=== PATIENT | female | born 1945 | race Hispanic/Latino ===

== ENCOUNTER → 2017-12-19 | Outpatient (CLI) | payer MEDICARE ==
[~2017-12-19] MED LIST: ACET-2160 PO; ACET-2247 PO; AMIO200T2 PO; CEPH500B PO; DILT30TA3 PO; FURO40TA7 PO; HYDR-2132 PO; LOVA20TA3 PO; MULT-1258 PO; MULTIVITAMIN; OMEGA; OMEGA 3 ACID PO; RIVA20TA PO; ROPI0.5T5 PO; SPIR25TA PO; SPIR25TA4 PO; TRAM50TA4 PO
== END ==
LOC: RAH 13:15
PROVIDERS: ATTEND Physical Medicine & Rehabilitation
DX: M19.012 Primary osteoarthritis, left shoulder (principal)
CPT/HCPCS: 73030

== ENCOUNTER 2018-04-21 09:37 | Observation (INO) | payer MEDICARE ==
[2018-04-20 14:59] VITALS: BP 113/65
[2018-04-20 15:15] LABS: BASOPHILS % (AUTO) 0.5 % (0.0-5.0); EOSINOPHILS % (AUTO) 1.1 % (0.0-8.0); LYMPHOCYTES % (AUTO) 25.7 % (21.0-51.0); MEAN CORPUSCULAR HEMOGLOBIN 34.1 pg (27.0-33.0); MEAN CORPUSCULAR VOLUME 97.4 fL (79-99); MONOCYTES % (AUTO) 9.4 % (3.0-13.0); NEUTROPHILS % (AUTO) 63.3 % (40.0-77.0); PLATELET COUNT (AUTO) 192 K/uL (130-400); RED CELL DISTRIBUTION WIDTH 13.4 % (11.0-15.5); WHITE BLOOD COUNT (AUTO) 5.6 K/uL (4.8-10.8)
[2018-04-20 15:23] LABS: POTASSIUM 4.6 mmol/L (3.5-5.1)
[2018-04-20 15:24] LABS: CREATININE 1.9 mg/dL (0.5-1.5)
[~2018-04-21] VITALS: Ht 149.9 cm; Wt 80.4 kg
[2018-04-21] VITALS (22 sets, daily range): BP systolic 115–147; BP diastolic 60–84
[~2018-04-21 09:37] MED LIST changes: -ACET-2247 PO; -AMIO200T2 PO; +CEFAZOLIN SODIUM 1 GM VIAL IVP ONE; -CEPH500B PO; -DILT30TA3 PO; -FURO40TA7 PO; -HYDR-2132 PO; -LOVA20TA3 PO; -MULTIVITAMIN; -OMEGA; -SPIR25TA PO; -SPIR25TA4 PO; +SPIR25TA6 PO; -TRAM50TA4 PO; +WATER FOR INJECTION,STERILE 20 ML VIAL IJ ONE
[2018-04-21] MEDS ORDERED: CEFAZOLIN SODIUM 1 GM VIAL ONE (10:23)
[2018-04-21] MEDS ORDERED: LACTATED RINGERS 1000ML 1,000 ML IV ONE (10:23)
[2018-04-21] MEDS ORDERED: SUCCINYLCHOLINE 200MG/10ML SYR ONE (11:39)
[2018-04-21] MEDS ORDERED: ONDANSETRON HCL 4 MG/2 ML VIAL ONE (11:39)
[2018-04-21] MEDS ORDERED: LIDOCAINE PF 2% 5ML ABBOJECT ONE (11:39)
[2018-04-21] MEDS ORDERED: DEXAMETHASONE SOD PHOSPHATE 10MG/ML 1ML VIAL ONE (11:40)
[2018-04-21] MEDS ORDERED: PROPOFOL 10 MG/ML 20ML VIAL IV ONE (11:40)
[2018-04-21] MEDS ORDERED: GLYCOPYRROLATE 0.2 MG/ML 5 ML VIAL ONE (11:40)
[2018-04-21] MEDS ORDERED: MIDAZOLAM HCL 1 MG/ML 2ML VIAL ONE (11:40)
[2018-04-21] MEDS ORDERED: FENTANYL CITRATE PF 50 MCG/1 ML 2ML VIAL ONE (11:40)
[2018-04-21] MEDS ORDERED: EPINEPHRINE 1 MG/ML 30ML VIAL IJ ONE (11:41)
[2018-04-21] MEDS ORDERED: HYDR-2132 PO (17:01)
[2018-04-21] MEDS ORDERED: CEPH500B PO (17:01)
[2018-04-21] MEDS ORDERED: IPRATROPIUM/ALBUTEROL SULFATE 3 ML SOLUTION IH ONE (18:28)
[2018-04-21] MEDS ORDERED: ONDANSETRON HCL MDV 20ML 2 MG/ML VIAL ONE (18:40)
[2018-04-21] MEDS ORDERED: METOCLOPRAMIDE 10 MG/2 ML VIAL ONE (18:40)
[2018-04-21] MEDS ORDERED: ENOXAPARIN SODIUM 40 MG/0.4 ML SYRINGE SQ SCH (20:45)
[2018-04-21] MEDS: IPRATROPIUM/ALBUTEROL SULFATE 3 ML SOLUTION IH SCH ×3 (22:00→23:28)
[2018-04-21] MEDS ORDERED: FUROSEMIDE 10 MG/ML 4ML VIAL ONE (22:05)
[2018-04-21] MEDS ORDERED: FUROSEMIDE 10 MG/ML 4ML VIAL IV SCH (22:30)
[2018-04-22] VITALS: BP 135/48
[2018-04-22] MEDS ORDERED: ACETAMINOPHEN 325 MG TAB PO PRN (02:00)
[2018-04-22] MEDS ORDERED: PHARMACY COMMUNICATION MISC SCH (02:00)
[2018-04-22 04:00] VITALS: BP 95/49
[2018-04-22] MEDS: IPRATROPIUM/ALBUTEROL SULFATE 3 ML SOLUTION IH SCH ×5 (05:12→22:11)
[2018-04-22 06:52] LABS: ALBUMIN 3.2 g/dL (3.5-5.0); BILIRUBIN,TOTAL 1.3 mg/dL (0.2-1.0); CREATININE 1.6 mg/dL (0.5-1.5); POTASSIUM 3.9 mmol/L (3.5-5.1); TOTAL PROTEIN, SERUM 6.6 g/dL (6.0-8.3)
[2018-04-22 07:00] LABS: BASOPHILS % (AUTO) 0.2 % (0.0-5.0); HEMATOCRIT 33.3 % (36-48); LYMPHOCYTES % (AUTO) 10.9 % (21.0-51.0); MEAN CORPUSCULAR HEMOGLOBIN 34.4 pg (27.0-33.0); MEAN CORPUSCULAR HGB CONC 35.3 g/dL (32.0-36.0); MEAN CORPUSCULAR VOLUME 97.6 fL (79-99); MONOCYTES % (AUTO) 8.5 % (3.0-13.0); NEUTROPHILS % (AUTO) 80.4 % (40.0-77.0); PLATELET COUNT (AUTO) 174 K/uL (130-400); RED BLOOD CELL COUNT(AUTO) 3.41 MIL/uL (4.00-5.50); WHITE BLOOD COUNT (AUTO) 8.5 K/uL (4.8-10.8)
[2018-04-22 07:25] LABS: APPEARANCE,URINE CLEAR (CLEAR); BILIRUBIN,URINE NEGATIVE (NEGATIVE); GLUCOSE, URINE (UA) NEGATIVE (NEGATIVE); KETONES,URINE NEGATIVE (NEGATIVE); LEUKOCYTE ESTERASE ,URINE NEGATIVE (NEGATIVE); NITRATE,URINE NEGATIVE (NEGATIVE); OCCULT BLOOD,URINE NEGATIVE (NEGATIVE); PH,URINE 5.5 (5.0-8.0); PROTEIN,URINE NEGATIVE (NEGATIVE); UROBILINOGEN,URINE 0.2 mg/dL (0.2-1.0)
[2018-04-22 07:27] LABS: COLOR,URINE DARK YELLOW (YELLOW)
[2018-04-22 07:36] LABS: BACTERIA,URINE Rare /HPF (None Seen); MUCUS,URINE Few LPF (None Seen); RBC,URINE None Seen /HPF (0-1); SQUAMOUS EPITHELIAL CELL,UR Rare /HPF (0-2); WBC,URINE None Seen /HPF (0-1)
[2018-04-22 08:09] VITALS: BP 109/53
[2018-04-22] MEDS: MULTIVITAMIN TABLET PO SCH (08:52)
[2018-04-22] MEDS: FISH OIL 1000 MG/CAP PO SCH ×3 (08:52→20:21)
[2018-04-22] MEDS: SPIRONOLACTONE 25 MG TAB PO SCH ×2 (08:52→20:06)
[2018-04-22] MEDS: RIVAROXABAN 20 MG TABLET PO SCH (08:53)
[2018-04-22] MEDS ORDERED: FUROSEMIDE 10 MG/ML 4ML VIAL IV SCH (10:00)
[2018-04-22 11:22] VITALS: BP 114/57
[2018-04-22 16:13] VITALS: BP 94/51
[2018-04-22 20:04] VITALS: BP 90/52
[2018-04-22] MEDS ORDERED: ROPINIROLE HCL 1 MG TABLET PO SCH (21:00)
[2018-04-23] VITALS: BP 102/55
[2018-04-23] MEDS: IPRATROPIUM/ALBUTEROL SULFATE 3 ML SOLUTION IH SCH ×4 (01:40→14:09)
[2018-04-23 04:00] VITALS: BP 90/53
[2018-04-23 04:52] LABS: BASOPHILS % (AUTO) 0.2 % (0.0-5.0); EOSINOPHILS % (AUTO) 0.1 % (0.0-8.0); HEMATOCRIT 30.2 % (36-48); MEAN CORPUSCULAR HEMOGLOBIN 34.7 pg (27.0-33.0); MEAN CORPUSCULAR HGB CONC 35.6 g/dL (32.0-36.0); MEAN CORPUSCULAR VOLUME 97.4 fL (79-99); MONOCYTES % (AUTO) 10.7 % (3.0-13.0); PLATELET COUNT (AUTO) 138 K/uL (130-400); WHITE BLOOD COUNT (AUTO) 9.1 K/uL (4.8-10.8)
[2018-04-23 05:09] LABS: ALBUMIN 2.8 g/dL (3.5-5.0); BILIRUBIN,TOTAL 1.8 mg/dL (0.2-1.0); CREATININE 1.5 mg/dL (0.5-1.5); POTASSIUM 3.9 mmol/L (3.5-5.1); TOTAL PROTEIN, SERUM 6.1 g/dL (6.0-8.3)
[2018-04-23 08:23] VITALS: BP 104/61
[2018-04-23] MEDS: FISH OIL 1000 MG/CAP PO SCH ×2 (08:24→14:15)
[2018-04-23] MEDS: RIVAROXABAN 20 MG TABLET PO SCH (08:24)
[2018-04-23] MEDS: SPIRONOLACTONE 25 MG TAB PO SCH (08:24)
[2018-04-23] MEDS: MULTIVITAMIN TABLET PO SCH (08:24)
[2018-04-23] MEDS ORDERED: FUROSEMIDE 10 MG/ML 4ML VIAL IV SCH (09:00)
[2018-04-23] MEDS ORDERED: LACTULOSE 20 GM/30 ML UDCUP PO PRN (11:15)
[2018-04-23 12:31] VITALS: BP 92/54
[2018-04-23 16:46] VITALS: BP 96/51
== END 2018-04-23 17:30 | disposition home or self-care (01) ==
LOC: DAH 09:37 → 4AH 09:38 → DAH 09:38
PROVIDERS: ADMIT Family Medicine; ATTEND Family Medicine
DX: S46.219A Strain of muscle, fascia and tendon of other parts of biceps, unspecified arm, initial encounter (principal); E03.9 Hypothyroidism, unspecified; M19.019 Primary osteoarthritis, unspecified shoulder; M75.42 Impingement syndrome of left shoulder; Z96.651 Presence of right artificial knee joint; E87.70 Fluid overload, unspecified; Z90.710 Acquired absence of both cervix and uterus
CPT/HCPCS: 29822; 29824; 29826; 29827; 36415 ×3; 71045 ×2; 80048; 80053 ×2; 81001; 83880; 85025 ×3; 87088; 93005; 94640 ×11; 94664; 96372; 96374; 96376; A4218; A4344 ×2; A4565; A4649 ×5; A4930; A6204; C1763; G0378 ×56; J0171; J0330; J0690; J1100; J1650; J1940 ×3; J2001; J2250; J2405; J2704; J2765; J3010; J3490; J7120

== ENCOUNTER 2020-11-05 06:08 | Day surgery (SDC) | payer MEDICARE ==
[2020-10-29 13:24] LABS: BASOPHILS % (AUTO) 0.6 % (0.0-5.0); EOSINOPHILS % (AUTO) 2.4 % (0.0-8.0); HEMATOCRIT 41.8 % (36-48); LYMPHOCYTES % (AUTO) 32.7 % (21.0-51.0); MEAN CORPUSCULAR HEMOGLOBIN 31.7 pg (27.0-33.0); MEAN CORPUSCULAR HGB CONC 33.3 g/dL (32.0-36.0); MEAN CORPUSCULAR VOLUME 95.2 fL (79-99); MONOCYTES % (AUTO) 8.2 % (3.0-13.0); NEUTROPHILS % (AUTO) 55.9 % (40.0-77.0); PLATELET COUNT (AUTO) 144 K/uL (130-400); RED BLOOD CELL COUNT(AUTO) 4.39 MIL/uL (4.00-5.50); WHITE BLOOD COUNT (AUTO) 4.7 K/uL (4.8-10.8)
[2020-10-29 13:31] LABS: CREATININE 1.2 mg/dL (0.5-1.5); POTASSIUM 4.4 mmol/L (3.5-5.1)
[2020-11-04 09:33] VITALS: BP 127/66
[2020-11-05] VITALS (18 sets, daily range): BP systolic 88–111; BP diastolic 53–82
[~2020-11-05] VITALS: Ht 149.9 cm; Wt 85.5 kg
[~2020-11-05 06:08] MED LIST changes: -ACET-2160 PO; +ASCO100031 PO; -CEFAZOLIN SODIUM 1 GM VIAL IVP ONE; +FURO40TA5 PO; +LEVO75CA5 PO; +LOVA20TA3 PO; -ROPI0.5T5 PO; +ROPI0.5T7 PO; -WATER FOR INJECTION,STERILE 20 ML VIAL IJ ONE
[2020-11-05] MEDS ORDERED: BUPIVACAINE/PF 0.5% 30ML VIAL ONE (06:51)
[2020-11-05] MEDS ORDERED: CEFAZOLIN SODIUM 1 GM VIAL ONE (06:51)
[2020-11-05] MEDS: CEFAZOLIN SODIUM 1 GM VIAL IVP SCH ×2 (07:00→08:20)
[2020-11-05] MEDS ORDERED: LACTATED RINGERS 1000ML 1,000 ML IV ONE (07:07)
[2020-11-05] MEDS ORDERED: DEXAMETHASONE SOD PHOSPHATE 10MG/ML 1ML VIAL ONE (07:36)
[2020-11-05] MEDS ORDERED: LIDOCAINE PF 100MG/5ML (2%) SYRINGE 5ML ONE (07:36)
[2020-11-05] MEDS ORDERED: MIDAZOLAM HCL 1 MG/ML 2ML VIAL ONE (07:37)
[2020-11-05] MEDS ORDERED: ONDANSETRON 4MG INJ ONE (07:37)
[2020-11-05] MEDS ORDERED: PROPOFOL 10 MG/ML 20ML VIAL IV ONE (07:37)
[2020-11-05] MEDS ORDERED: MEPERIDINE-PF 25 MG/ML SYG ONE (07:38)
[2020-11-05] MEDS ORDERED: FENTANYL CITRATE PF 50 MCG/1 ML 2ML VIAL ONE (07:38)
[2020-11-05] MEDS ORDERED: LIDOCAINE HCL-MPF 0.5% 50ML VIAL IJ ONE (07:42)
[2020-11-05] MEDS ORDERED: KETOROLAC 30MG VIAL (30MG/ML) ONE (08:05)
[2020-11-05] MEDS ORDERED: EPHEDRINE SULFATE 50 MG/ML AMPULE ONE (08:15)
[2020-11-05] MEDS ORDERED: ACET1TAB25 PO (09:21)
[2020-11-05] MEDS ORDERED: CEPH500B PO (09:21)
[2021-06-26] MEDS ORDERED: CLIN-141 PO (15:00)
== END 2020-11-05 11:32 ==
LOC: DAH 06:08 → EDSTATUS 10:00 → DAH 11:32
PROVIDERS: ATTEND Orthopaedic Surgery
DX: G56.02 Carpal tunnel syndrome, left upper limb (principal); I11.0 Hypertensive heart disease with heart failure; I50.9 Heart failure, unspecified; M19.90 Unspecified osteoarthritis, unspecified site; Z95.0 Presence of cardiac pacemaker; E03.9 Hypothyroidism, unspecified; Z90.710 Acquired absence of both cervix and uterus; M06.9 Rheumatoid arthritis, unspecified; Z79.899 Other long term (current) drug therapy; Z20.828 Contact with and (suspected) exposure to other viral communicable diseases
CPT/HCPCS: 36415; 64721; 80048; 85025; 93005; A4215; A4216; A4221; A4222; A4223; A4649; A4657; A4663; A4930; A5120; A6223; J0690 ×2; J1100; J1885; J2175; J2250; J2405; J2704; J3010; J3490 ×3; J7030; J7120; U0003; J2001

== ENCOUNTER → 2021-06-02 | Outpatient (CLI) | payer MEDICARE ==
[~2021-06-02] MED LIST changes: +ACET1TAB25 PO; +CEPH500B PO
== END | disposition home or self-care (01) ==
LOC: RAH 09:11
PROVIDERS: ATTEND Internal Medicine
DX: K82.8 Other specified diseases of gallbladder (principal); R16.0 Hepatomegaly, not elsewhere classified; K29.70 Gastritis, unspecified, without bleeding
CPT/HCPCS: 76705

== ENCOUNTER 2021-06-26 13:23 | Inpatient (IN) | payer MEDICARE ==
[~2021-06-26] VITALS: Ht 149.9 cm; Wt 88.5 kg
[2021-06-26] VITALS (7 sets, daily range): BP systolic 73–144; BP diastolic 34–95
[2021-06-26] MEDS ORDERED: HYDROCODONE/ACETAMINOPHEN 5/325 MG TAB PO ONE (14:00)
[2021-06-26] MEDS ORDERED: CLINDAMYCIN IVPB 600MG/50ML 50 ML IV SCH (14:00)
[2021-06-26 14:12] LABS: BASOPHILS % (AUTO) 0.3 % (0.0-5.0); EOSINOPHILS % (AUTO) 0.2 % (0.0-8.0); HEMATOCRIT 39.2 % (36-48); LYMPHOCYTES % (AUTO) 5.4 % (21.0-51.0); MEAN CORPUSCULAR HEMOGLOBIN 32.6 pg (27.0-33.0); MEAN CORPUSCULAR HGB CONC 33.4 g/dL (32.0-36.0); MEAN CORPUSCULAR VOLUME 97.5 fL (79-99); MONOCYTES % (AUTO) 5.5 % (3.0-13.0); NEUTROPHILS % (AUTO) 87.4 % (40.0-77.0); PLATELET COUNT (AUTO) 202 K/uL (130-400); RED BLOOD CELL COUNT(AUTO) 4.02 MIL/uL (4.00-5.50); RED CELL DISTRIBUTION WIDTH 14.6 % (11.0-15.5); WHITE BLOOD COUNT (AUTO) 19.8 K/uL (4.8-10.8)
[2021-06-26 14:21] LABS: CREATININE 1.9 mg/dL (0.5-1.5); POTASSIUM 4.5 mmol/L (3.5-5.1)
[2021-06-26 14:26] LABS: ALBUMIN 2.8 g/dL (3.5-5.0); BILIRUBIN,TOTAL 2.1 mg/dL (0.2-1.0); TOTAL PROTEIN, SERUM 6.6 g/dL (6.0-8.3)
[2021-06-26 14:36] LABS: CRP QUANTITATIVE 114.3 mg/L (0.00-9.0)
[2021-06-26 14:53] LABS: INR 1.65 (0.85-1.15); PROTHROMBIN TIME 17.2 SEC (9.6-11.6)
[2021-06-26] MEDS ORDERED: AMOX-429 PO (15:00)
[2021-06-26] MEDS ORDERED: MUPI22O TP (15:00)
[2021-06-26] MEDS ORDERED: CLIN300C10 PO (15:00)
[2021-06-26] MEDS ORDERED: ACET-2247 PO (15:00)
[2021-06-26] MEDS ORDERED: HYDROCODONE/ACETAMINOPHEN 5/325 MG TAB ONE (15:17)
[2021-06-26] MEDS ORDERED: ASPIRIN 325MG TAB PO ONE (16:00)
[2021-06-26] MEDS ORDERED: NITROGLYCERIN 1GM OINT 1 INCH/1GM TD ONE (16:00)
[2021-06-26] MEDS ORDERED: DIPHENHYDRAMINE HCL 25 MG CAPSULE PO PRN (17:00)
[2021-06-26] MEDS ORDERED: GUAIFENESIN-DM 200/20 MG 10 ML PO PRN (17:00)
[2021-06-26] MEDS ORDERED: HYDRALAZINE 20MG/ML VIAL IV PRN (17:00)
[2021-06-26] MEDS ORDERED: ONDANSETRON 4MG INJ IV PRN (17:00)
[2021-06-26] MEDS ORDERED: ACETAMINOPHEN 325 MG TAB PO PRN (17:00)
[2021-06-26] MEDS ORDERED: LACTULOSE 20 GM/30 ML UDCUP PO PRN (17:00)
[2021-06-26] MEDS ORDERED: ACETAMINOPHEN WITH CODEINE 1 TAB TAB PO PRN (17:00)
[2021-06-26] MEDS ORDERED: NITROGLYCERIN 0.4 MG SL TAB SL PRN (17:00)
[2021-06-26 17:37] LABS: APPEARANCE,URINE Cloudy (CLEAR); BILIRUBIN,URINE Small (NEGATIVE); COLOR,URINE Dark Yellow (YELLOW); GLUCOSE, URINE (UA) Negative (NEGATIVE); KETONES,URINE Trace mg/dL (NEGATIVE); LEUKOCYTE ESTERASE ,URINE Small (NEGATIVE); NITRATE,URINE Negative (NEGATIVE); OCCULT BLOOD,URINE Negative (NEGATIVE); PROTEIN,URINE Trace mg/dL (NEGATIVE)
[2021-06-26 17:44] LABS: BACTERIA,URINE Moderate /HPF (None Seen); RBC,URINE 0-1 /HPF (0-1); SQUAMOUS EPITHELIAL CELL,UR Few /HPF (0-2)
[2021-06-26 17:45] LABS: MUCUS,URINE Rare LPF (None Seen)
[2021-06-26] MEDS ORDERED: NOREPINEPHRINE 4MG/NS 250ML 250 ML IV SCH (18:00)
[2021-06-26] MEDS: MEROPENEM 500 MG VIAL IVP SCH (18:00)
[2021-06-26] MEDS: 0.9% NACL 250ML IVPB SCH (18:00)
[2021-06-26 18:07] LABS: CREATININE,URINE RANDOM 125 mg/dL (30-135); SODIUM,URINE RANDOM 30 mmol/l (40-220)
[2021-06-26] MEDS ORDERED: PHARMACY COMMUNICATION MISC SCH (18:30)
[2021-06-26] MEDS: LACTATED RINGERS 1000ML 1,000 ML IV SCH (20:18)
[2021-06-26] MEDS ORDERED: FAMOTIDINE 20MG TAB ONE (20:20)
[2021-06-26] MEDS ORDERED: FAMOTIDINE 20MG VIAL IV ONE (20:25)
[2021-06-26] MEDS: DOXYCYCLINE 100MG+NS 250ML IV SCH (20:30)
[2021-06-26] MEDS: LINEZOLID 600 MG/ISO-OSM 300 ML IV SCH (21:45)
[2021-06-26 21:57] LABS: TROPONIN I 0.07 ng/mL (0.00-0.06)
[2021-06-27] VITALS (13 sets, daily range): BP systolic 75–118; BP diastolic 37–74
[2021-06-27] MEDS: 0.9% NACL 250ML IVPB SCH ×2 (06:00→18:00)
[2021-06-27] MEDS: DOXYCYCLINE 100MG+NS 250ML IV SCH ×2 (06:00→20:00)
[2021-06-27] MEDS: MEROPENEM 500 MG VIAL IVP SCH (06:49)
[2021-06-27] MEDS: LACTATED RINGERS 1000ML 1,000 ML IV SCH ×2 (08:20→22:53)
[2021-06-27] MEDS ORDERED: FUROSEMIDE 40MG VIAL IV SCH (09:00)
[2021-06-27] MEDS ORDERED: FAMOTIDINE 20MG VIAL IV SCH (09:00)
[2021-06-27 09:18] LABS: BASOPHILS % (AUTO) 0.3 % (0.0-5.0); EOSINOPHILS % (AUTO) 0.2 % (0.0-8.0); HEMATOCRIT 35.3 % (36-48); LYMPHOCYTES % (AUTO) 5.5 % (21.0-51.0); MEAN CORPUSCULAR HEMOGLOBIN 33.5 pg (27.0-33.0); MEAN CORPUSCULAR HGB CONC 33.7 g/dL (32.0-36.0); MEAN CORPUSCULAR VOLUME 99.4 fL (79-99); MONOCYTES % (AUTO) 3.2 % (3.0-13.0); NEUTROPHILS % (AUTO) 88.6 % (40.0-77.0); PLATELET COUNT (AUTO) 147 K/uL (130-400); RED BLOOD CELL COUNT(AUTO) 3.55 MIL/uL (4.00-5.50); RED CELL DISTRIBUTION WIDTH 14.7 % (11.0-15.5); WHITE BLOOD COUNT (AUTO) 20.3 K/uL (4.8-10.8)
[2021-06-27] MEDS: LINEZOLID 600 MG/ISO-OSM 300 ML IV SCH ×2 (09:19→22:30)
[2021-06-27 09:53] LABS: TROPONIN I 0.17 ng/mL (0.00-0.06)
[2021-06-27 10:00] LABS: CREATININE 1.7 mg/dL (0.5-1.5); MAGNESIUM 2.3 mg/dL (1.80-2.40); POTASSIUM 5.3 mmol/L (3.5-5.1)
[2021-06-27] MEDS: PANTOPRAZOLE 40 MG TAB DR PO SCH (10:48)
[2021-06-27 16:48] LABS: TROPONIN I 0.16 ng/mL (0.00-0.06)
[2021-06-27] MEDS: MEROPENEM 1 GM VIAL IVP SCH (17:00)
[2021-06-27 22:22] LABS: TROPONIN I 0.15 ng/mL (0.00-0.06)
[2021-06-28] VITALS (17 sets, daily range): BP systolic 95–130; BP diastolic 49–71
[2021-06-28] MEDS: MEROPENEM 1 GM VIAL IVP SCH ×2 (00:05→15:55)
[2021-06-28] MEDS: 0.9% NACL 250ML IVPB SCH ×2 (06:26→18:30)
[2021-06-28] MEDS: DOXYCYCLINE 100MG+NS 250ML IV SCH ×2 (06:26→18:29)
[2021-06-28] MEDS: PANTOPRAZOLE 40 MG TAB DR PO SCH (09:00)
[2021-06-28 09:17] LABS: BASOPHILS % (AUTO) 0.2 % (0.0-5.0); EOSINOPHILS % (AUTO) 0.9 % (0.0-8.0); HEMATOCRIT 34.6 % (36-48); LYMPHOCYTES % (AUTO) 6.1 % (21.0-51.0); MEAN CORPUSCULAR HEMOGLOBIN 32.6 pg (27.0-33.0); MEAN CORPUSCULAR HGB CONC 33.2 g/dL (32.0-36.0); MONOCYTES % (AUTO) 2.9 % (3.0-13.0); NEUTROPHILS % (AUTO) 88.8 % (40.0-77.0); PLATELET COUNT (AUTO) 142 K/uL (130-400); RED BLOOD CELL COUNT(AUTO) 3.53 MIL/uL (4.00-5.50); RED CELL DISTRIBUTION WIDTH 14.7 % (11.0-15.5); WHITE BLOOD COUNT (AUTO) 14.1 K/uL (4.8-10.8)
[2021-06-28 09:29] LABS: CREATININE 1.4 mg/dL (0.5-1.5); MAGNESIUM 2.4 mg/dL (1.80-2.40); POTASSIUM 4.8 mmol/L (3.5-5.1)
[2021-06-28 09:32] LABS: TROPONIN I 0.15 ng/mL (0.00-0.06)
[2021-06-28] MEDS: LINEZOLID 600 MG/ISO-OSM 300 ML IV SCH ×2 (11:00→20:02)
[2021-06-28] MEDS: LACTATED RINGERS 1000ML 1,000 ML IV SCH (11:26)
[2021-06-28 13:25] LABS: TROPONIN I 0.12 ng/mL (0.00-0.06)
[2021-06-28 21:21] LABS: TROPONIN I 0.11 ng/mL (0.00-0.06)
[2021-06-29] VITALS (8 sets, daily range): BP systolic 109–129; BP diastolic 52–76
[2021-06-29 03:34] LABS: HEMATOCRIT 34.4 % (36-48); MEAN CORPUSCULAR HEMOGLOBIN 32.9 pg (27.0-33.0); MEAN CORPUSCULAR HGB CONC 33.1 g/dL (32.0-36.0); MEAN CORPUSCULAR VOLUME 99.4 fL (79-99); RED BLOOD CELL COUNT(AUTO) 3.46 MIL/uL (4.00-5.50); RED CELL DISTRIBUTION WIDTH 14.6 % (11.0-15.5); WHITE BLOOD COUNT (AUTO) 9.8 K/uL (4.8-10.8)
[2021-06-29 03:43] LABS: CREATININE 1.4 mg/dL (0.5-1.5); MAGNESIUM 2.3 mg/dL (1.80-2.40); POTASSIUM 4.7 mmol/L (3.5-5.1)
[2021-06-29] MEDS: 0.9% NACL 250ML IVPB SCH (05:09)
[2021-06-29] MEDS: DOXYCYCLINE 100MG+NS 250ML IV SCH (05:09)
[2021-06-29] MEDS: PANTOPRAZOLE 40 MG TAB DR PO SCH (08:57)
[2021-06-29] MEDS: LINEZOLID 600 MG/ISO-OSM 300 ML IV SCH (08:57)
[2021-06-29] MEDS: ENOXAPARIN SODIUM 40 MG/0.4 ML SYRINGE SQ SCH (08:58)
[2021-06-29] MEDS ORDERED: LEVOFLOXACIN 500 MG/D5W 100 ML 100 ML IV SCH (09:30)
[2021-06-30 03:30] VITALS: BP 119/71
[2021-06-30 03:32] VITALS: BP 119/71
[2021-06-30 04:12] LABS: CREATININE 1.1 mg/dL (0.5-1.5); MAGNESIUM 2.4 mg/dL (1.80-2.40); POTASSIUM 4.7 mmol/L (3.5-5.1)
[2021-06-30 06:34] LABS: HEMATOCRIT 34.1 % (36-48); MEAN CORPUSCULAR HEMOGLOBIN 32.3 pg (27.0-33.0); MEAN CORPUSCULAR HGB CONC 33.1 g/dL (32.0-36.0); MEAN CORPUSCULAR VOLUME 97.4 fL (79-99); RED BLOOD CELL COUNT(AUTO) 3.5 MIL/uL (4.00-5.50); RED CELL DISTRIBUTION WIDTH 14.1 % (11.0-15.5)
[2021-06-30] MEDS: PANTOPRAZOLE 40 MG TAB DR PO SCH (09:58)
[2021-06-30] MEDS: LEVOFLOXACIN 500 MG/D5W 100 ML 100 ML IV SCH (09:58)
[2021-06-30] MEDS: CEFAZOLIN SODIUM 1 GM VIAL IVP SCH ×2 (09:58→16:16)
[2021-06-30] MEDS: ENOXAPARIN SODIUM 40 MG/0.4 ML SYRINGE SQ SCH (09:59)
[2021-06-30 15:24] VITALS: BP 111/64
[2021-06-30] MEDS ORDERED: [UNRECOGNIZED DRUG - REMARK] MISC STA (17:32)
[2021-06-30] MEDS: FUROSEMIDE 20MG VIAL IV SCH (18:41)
[2021-06-30 19:22] VITALS: BP 118/62
[2021-06-30] MEDS: FISH OIL 1000 MG/CAP PO SCH (21:01)
[2021-06-30] MEDS: ATORVASTATIN 10 MG TABLET PO SCH (21:02)
[2021-06-30 23:33] VITALS: BP 116/58
[2021-07-01] MEDS: CEFAZOLIN SODIUM 1 GM VIAL IVP SCH ×3 (01:10→17:09)
[2021-07-01 04:09] VITALS: BP 107/60
[2021-07-01 04:57] LABS: BASOPHILS % (AUTO) 0.4 % (0.0-5.0); EOSINOPHILS % (AUTO) 1.8 % (0.0-8.0); MEAN CORPUSCULAR HEMOGLOBIN 32.5 pg (27.0-33.0); MEAN CORPUSCULAR HGB CONC 33.4 g/dL (32.0-36.0); MEAN CORPUSCULAR VOLUME 97.3 fL (79-99); NEUTROPHILS % (AUTO) 61.2 % (40.0-77.0); PLATELET COUNT (AUTO) 131 K/uL (130-400); RED BLOOD CELL COUNT(AUTO) 3.29 MIL/uL (4.00-5.50); RED CELL DISTRIBUTION WIDTH 14.1 % (11.0-15.5); WHITE BLOOD COUNT (AUTO) 5.4 K/uL (4.8-10.8)
[2021-07-01 05:12] LABS: CREATININE 1.2 mg/dL (0.5-1.5); CRP QUANTITATIVE 133.3 mg/L (0.00-9.0); POTASSIUM 4.3 mmol/L (3.5-5.1)
[2021-07-01] MEDS: LEVOTHYROXINE 75 MCG TABLET PO SCH (05:36)
[2021-07-01] MEDS: FUROSEMIDE 20MG VIAL IV SCH ×2 (05:36→17:09)
[2021-07-01 05:37] LABS: B-TYPE NATRIURETIC PEPTIDE 459 pg/mL (0-100)
[2021-07-01 06:00] LABS: ERYTHROCYTE SEDIMENTATION RATE 116 MM/HR (0-30)
[2021-07-01 07:30] VITALS: BP 95/54
[2021-07-01] MEDS: RIVAROXABAN 20 MG TABLET PO SCH (09:24)
[2021-07-01] MEDS: ROPINIROLE HCL 1 MG TABLET PO SCH ×2 (09:24→20:46)
[2021-07-01] MEDS: SPIRONOLACTONE 25 MG TAB PO SCH (09:24)
[2021-07-01] MEDS: PANTOPRAZOLE 40 MG TAB DR PO SCH (09:24)
[2021-07-01] MEDS: FISH OIL 1000 MG/CAP PO SCH ×3 (09:24→20:45)
[2021-07-01] MEDS: LEVOFLOXACIN 500 MG/D5W 100 ML 100 ML IV SCH (09:31)
[2021-07-01 11:00] VITALS: BP 109/63
[2021-07-01 16:00] VITALS: BP 117/67
[2021-07-01 19:42] VITALS: BP 102/54
[2021-07-01] MEDS: ATORVASTATIN 10 MG TABLET PO SCH (20:46)
[2021-07-02] VITALS (7 sets, daily range): BP systolic 90–108; BP diastolic 48–65
[2021-07-02] MEDS: CEFAZOLIN SODIUM 1 GM VIAL IVP SCH ×3 (01:14→16:24)
[2021-07-02] MEDS: LEVOTHYROXINE 75 MCG TABLET PO SCH (04:52)
[2021-07-02 05:38] LABS: BASOPHILS % (AUTO) 0.5 % (0.0-5.0); EOSINOPHILS % (AUTO) 2.5 % (0.0-8.0); HEMATOCRIT 34.1 % (36-48); LYMPHOCYTES % (AUTO) 27.4 % (21.0-51.0); MEAN CORPUSCULAR HGB CONC 33.1 g/dL (32.0-36.0); MEAN CORPUSCULAR VOLUME 96.6 fL (79-99); MONOCYTES % (AUTO) 10.6 % (3.0-13.0); NEUTROPHILS % (AUTO) 58.3 % (40.0-77.0); PLATELET COUNT (AUTO) 125 K/uL (130-400); RED BLOOD CELL COUNT(AUTO) 3.53 MIL/uL (4.00-5.50); RED CELL DISTRIBUTION WIDTH 13.7 % (11.0-15.5); WHITE BLOOD COUNT (AUTO) 4.4 K/uL (4.8-10.8)
[2021-07-02 05:45] LABS: CREATININE 1.2 mg/dL (0.5-1.5); POTASSIUM 4.2 mmol/L (3.5-5.1)
[2021-07-02] MEDS: LEVOFLOXACIN 500 MG/D5W 100 ML 100 ML IV SCH (09:58)
[2021-07-02] MEDS: RIVAROXABAN 20 MG TABLET PO SCH (09:58)
[2021-07-02] MEDS: PANTOPRAZOLE 40 MG TAB DR PO SCH (09:59)
[2021-07-02] MEDS: SPIRONOLACTONE 25 MG TAB PO SCH (09:59)
[2021-07-02] MEDS: FISH OIL 1000 MG/CAP PO SCH ×3 (09:59→20:41)
[2021-07-02] MEDS ORDERED: FUROSEMIDE 20 MG TABLET PO SCH (11:30)
[2021-07-02] MEDS: ROPINIROLE HCL 1 MG TABLET PO SCH (20:41)
[2021-07-02] MEDS: ATORVASTATIN 10 MG TABLET PO SCH (20:41)
[2021-07-03 03:51] LABS: BASOPHILS % (AUTO) 0.4 % (0.0-5.0); EOSINOPHILS % (AUTO) 1.8 % (0.0-8.0); HEMATOCRIT 31.5 % (36-48); LYMPHOCYTES % (AUTO) 23.7 % (21.0-51.0); MEAN CORPUSCULAR HEMOGLOBIN 32.3 pg (27.0-33.0); MEAN CORPUSCULAR HGB CONC 33.7 g/dL (32.0-36.0); MONOCYTES % (AUTO) 13.5 % (3.0-13.0); NEUTROPHILS % (AUTO) 60.2 % (40.0-77.0); PLATELET COUNT (AUTO) 113 K/uL (130-400); RED BLOOD CELL COUNT(AUTO) 3.28 MIL/uL (4.00-5.50); RED CELL DISTRIBUTION WIDTH 13.4 % (11.0-15.5); WHITE BLOOD COUNT (AUTO) 5.1 K/uL (4.8-10.8)
[2021-07-03 04:00] LABS: CREATININE 1.1 mg/dL (0.5-1.5); POTASSIUM 4.2 mmol/L (3.5-5.1)
[2021-07-03] MEDS: LEVOTHYROXINE 75 MCG TABLET PO SCH (05:01)
[2021-07-03] MEDS: CEFAZOLIN SODIUM 1 GM VIAL IVP SCH ×3 (05:01→16:45)
[2021-07-03 08:00] VITALS: BP 93/51
[2021-07-03] MEDS: LEVOFLOXACIN 500 MG/D5W 100 ML 100 ML IV SCH (11:36)
[2021-07-03] MEDS: SPIRONOLACTONE 25 MG TAB PO SCH (11:37)
[2021-07-03] MEDS: FISH OIL 1000 MG/CAP PO SCH ×3 (11:37→20:45)
[2021-07-03] MEDS: RIVAROXABAN 20 MG TABLET PO SCH (11:37)
[2021-07-03] MEDS: PANTOPRAZOLE 40 MG TAB DR PO SCH (11:37)
[2021-07-03] MEDS: FUROSEMIDE 20 MG TABLET PO SCH (11:38)
[2021-07-03 12:00] VITALS: BP 96/55
[2021-07-03 20:00] VITALS: BP 92/53
[2021-07-03] MEDS: ATORVASTATIN 10 MG TABLET PO SCH (20:46)
[2021-07-03] MEDS: ROPINIROLE HCL 1 MG TABLET PO SCH (20:46)
[2021-07-04] VITALS: BP 100/59
[2021-07-04] MEDS: CEFAZOLIN SODIUM 1 GM VIAL IVP SCH ×3 (01:32→16:14)
[2021-07-04 04:00] VITALS: BP 122/61
[2021-07-04 05:07] LABS: BASOPHILS % (AUTO) 0.6 % (0.0-5.0); EOSINOPHILS % (AUTO) 1.5 % (0.0-8.0); HEMATOCRIT 31.4 % (36-48); LYMPHOCYTES % (AUTO) 25.3 % (21.0-51.0); MEAN CORPUSCULAR HEMOGLOBIN 32.1 pg (27.0-33.0); MEAN CORPUSCULAR HGB CONC 33.4 g/dL (32.0-36.0); MONOCYTES % (AUTO) 13.6 % (3.0-13.0); NEUTROPHILS % (AUTO) 58.4 % (40.0-77.0); NUCLEATED RED BLOOD CELLS 0.4 % (0.0-0.19); PLATELET COUNT (AUTO) 105 K/uL (130-400); RED BLOOD CELL COUNT(AUTO) 3.27 MIL/uL (4.00-5.50); RED CELL DISTRIBUTION WIDTH 13.4 % (11.0-15.5); WHITE BLOOD COUNT (AUTO) 4.6 K/uL (4.8-10.8)
[2021-07-04 05:23] LABS: CREATININE 1.1 mg/dL (0.5-1.5); POTASSIUM 3.9 mmol/L (3.5-5.1)
[2021-07-04] MEDS: LEVOTHYROXINE 75 MCG TABLET PO SCH (05:51)
[2021-07-04] MEDS: RIVAROXABAN 20 MG TABLET PO SCH (07:42)
[2021-07-04] MEDS: FUROSEMIDE 20 MG TABLET PO SCH (07:42)
[2021-07-04] MEDS: PANTOPRAZOLE 40 MG TAB DR PO SCH (07:42)
[2021-07-04] MEDS: LEVOFLOXACIN 500 MG/D5W 100 ML 100 ML IV SCH (07:42)
[2021-07-04] MEDS: SPIRONOLACTONE 25 MG TAB PO SCH (07:43)
[2021-07-04] MEDS: FISH OIL 1000 MG/CAP PO SCH ×3 (07:43→20:43)
[2021-07-04 08:00] VITALS: BP 99/53
[2021-07-04 12:00] VITALS: BP 123/56
[2021-07-04 16:32] VITALS: BP 95/49
[2021-07-04 20:18] VITALS: BP 105/59
[2021-07-04] MEDS: ATORVASTATIN 10 MG TABLET PO SCH (20:43)
[2021-07-04] MEDS: ROPINIROLE HCL 1 MG TABLET PO SCH (20:44)
[2021-07-05] VITALS (7 sets, daily range): BP systolic 94–120; BP diastolic 49–69
[2021-07-05] MEDS: CEFAZOLIN SODIUM 1 GM VIAL IVP SCH ×3 (01:38→17:04)
[2021-07-05] MEDS: LEVOTHYROXINE 75 MCG TABLET PO SCH (05:53)
[2021-07-05 06:20] LABS: BASOPHILS % (AUTO) 0.5 % (0.0-5.0); EOSINOPHILS % (AUTO) 1.1 % (0.0-8.0); HEMATOCRIT 31.8 % (36-48); LYMPHOCYTES % (AUTO) 17.5 % (21.0-51.0); MEAN CORPUSCULAR HEMOGLOBIN 32.3 pg (27.0-33.0); MEAN CORPUSCULAR HGB CONC 34.3 g/dL (32.0-36.0); MEAN CORPUSCULAR VOLUME 94.4 fL (79-99); MONOCYTES % (AUTO) 10.4 % (3.0-13.0); NUCLEATED RED BLOOD CELLS 0.5 % (0.0-0.19); PLATELET COUNT (AUTO) 123 K/uL (130-400); RED BLOOD CELL COUNT(AUTO) 3.37 MIL/uL (4.00-5.50); RED CELL DISTRIBUTION WIDTH 13.3 % (11.0-15.5); WHITE BLOOD COUNT (AUTO) 6.6 K/uL (4.8-10.8)
[2021-07-05 06:27] LABS: CREATININE 1.1 mg/dL (0.5-1.5)
[2021-07-05] MEDS: FISH OIL 1000 MG/CAP PO SCH ×3 (09:03→21:55)
[2021-07-05] MEDS: PANTOPRAZOLE 40 MG TAB DR PO SCH (09:03)
[2021-07-05] MEDS: FUROSEMIDE 20 MG TABLET PO SCH (09:03)
[2021-07-05] MEDS: SPIRONOLACTONE 25 MG TAB PO SCH (09:04)
[2021-07-05] MEDS: LEVOFLOXACIN 500 MG/D5W 100 ML 100 ML IV SCH (09:04)
[2021-07-05] MEDS: RIVAROXABAN 20 MG TABLET PO SCH (09:04)
[2021-07-05] MEDS: ATORVASTATIN 10 MG TABLET PO SCH (21:55)
[2021-07-05] MEDS: ROPINIROLE HCL 1 MG TABLET PO SCH (21:55)
[2021-07-06] VITALS (7 sets, daily range): BP systolic 92–194; BP diastolic 44–77
[2021-07-06] MEDS: CEFAZOLIN SODIUM 1 GM VIAL IVP SCH ×2 (01:30→08:57)
[2021-07-06] MEDS: LEVOTHYROXINE 75 MCG TABLET PO SCH (06:37)
[2021-07-06] MEDS: LEVOFLOXACIN 500 MG/D5W 100 ML 100 ML IV SCH (08:57)
[2021-07-06] MEDS: RIVAROXABAN 20 MG TABLET PO SCH (08:57)
[2021-07-06] MEDS: SPIRONOLACTONE 25 MG TAB PO SCH (08:57)
[2021-07-06] MEDS: PANTOPRAZOLE 40 MG TAB DR PO SCH (08:57)
[2021-07-06] MEDS: FISH OIL 1000 MG/CAP PO SCH (08:57)
[2021-07-06] MEDS: FUROSEMIDE 20 MG TABLET PO SCH (08:57)
[2021-07-06] MEDS ORDERED: PANT40TA PO (16:13)
[2021-07-06] MEDS ORDERED: FURO20TA6 PO (16:13)
== END 2021-07-06 20:45 | disposition home or self-care (01) | DRG 871 ==
LOC: EDH 13:23 → EDHIP 16:50 → 2CH 06-29 01:14 → 4CH 06-30 21:12 → 4DH 07-03 21:59
PROVIDERS: ADMIT Internal Medicine; ATTEND Internal Medicine
PROC: 5A09357 Assistance with Respiratory Ventilation, Less than 24 Consecutive Hours, Continuous Positive Airway Pressure (ICD-10-PCS; principal; 2021-06-30)
PROC: 5A09357 Assistance with Respiratory Ventilation, Less than 24 Consecutive Hours, Continuous Positive Airway Pressure (ICD-10-PCS; 2021-07-01)
PROC: 5A09357 Assistance with Respiratory Ventilation, Less than 24 Consecutive Hours, Continuous Positive Airway Pressure (ICD-10-PCS; 2021-07-02)
PROC: 5A09357 Assistance with Respiratory Ventilation, Less than 24 Consecutive Hours, Continuous Positive Airway Pressure (ICD-10-PCS; 2021-07-04)
PROC: 5A09357 Assistance with Respiratory Ventilation, Less than 24 Consecutive Hours, Continuous Positive Airway Pressure (ICD-10-PCS; 2021-07-05)
DX: A41.50 Gram-negative sepsis, unspecified (principal); I21.A1 Myocardial infarction type 2; R65.21 Severe sepsis with septic shock; I50.23 Acute on chronic systolic (congestive) heart failure; L03.116 Cellulitis of left lower limb; I13.0 Hypertensive heart and chronic kidney disease with heart failure and stage 1 through stage 4 chronic kidney disease, or unspecified chronic kidney disease; I48.20 Chronic atrial fibrillation, unspecified; N17.9 Acute kidney failure, unspecified; N18.4 Chronic kidney disease, stage 4 (severe); N39.0 Urinary tract infection, site not specified; R17 Unspecified jaundice; D68.59 Other primary thrombophilia; E44.0 Moderate protein-calorie malnutrition; G47.33 Obstructive sleep apnea (adult) (pediatric); E78.5 Hyperlipidemia, unspecified; E03.9 Hypothyroidism, unspecified; E66.01 Morbid (severe) obesity due to excess calories; B95.61 Methicillin susceptible Staphylococcus aureus infection as the cause of diseases classified elsewhere; B96.20 Unspecified Escherichia coli [E. coli] as the cause of diseases classified elsewhere; E11.22 Type 2 diabetes mellitus with diabetic chronic kidney disease; R53.81 Other malaise; S81.832A Puncture wound without foreign body, left lower leg, initial encounter; G25.81 Restless legs syndrome; S90.822A Blister (nonthermal), left foot, initial encounter; D69.6 Thrombocytopenia, unspecified; E78.00 Pure hypercholesterolemia, unspecified; Z96.651 Presence of right artificial knee joint; Z20.822 Contact with and (suspected) exposure to COVID-19; Z68.39 Body mass index [BMI] 39.0-39.9, adult; Y93.01 Activity, walking, marching and hiking; Y92.89 Other specified places as the place of occurrence of the external cause; Y99.8 Other external cause status; Z79.01 Long term (current) use of anticoagulants; Z95.0 Presence of cardiac pacemaker; Z90.710 Acquired absence of both cervix and uterus; Z82.0 Family history of epilepsy and other diseases of the nervous system; Z82.3 Family history of stroke; Z82.5 Family history of asthma and other chronic lower respiratory diseases; Z83.3 Family history of diabetes mellitus; Z82.49 Family history of ischemic heart disease and other diseases of the circulatory system
CPT/HCPCS: 36415; 71045; 73590; 73700; 76770; 80048; 80053; 81001; 82550; 82570; 83605; 83735; 83874; 83880; 84145; 84300; 84484; 84540; 85025; 85027; 85610; 85651; 86140; 87040; 87070; 87076; 87077; 87088; 87186; 87635; 93005; 93306; 93925; 93971; 97039; G0378; J0690; J1650; J1940; J1956; J2020; J2185; J2405; J3490; J7120

== ENCOUNTER → 2021-08-14 | Outpatient (CLI) | payer MEDICARE ==
[~2021-08-14] MED LIST changes: -ACET1TAB25 PO; -ASCO100031 PO; -CEPH500B PO; +FURO20TA6 PO; -FURO40TA5 PO; -MULT-1258 PO; +PANT40TA PO
== END | disposition home or self-care (01) ==
LOC: RAH 15:59
PROVIDERS: ATTEND Internal Medicine
DX: J18.0 Bronchopneumonia, unspecified organism (principal); I51.7 Cardiomegaly; M51.34 Other intervertebral disc degeneration, thoracic region
CPT/HCPCS: 71046

== ENCOUNTER 2022-01-20 06:03 | Day surgery (SDC) | payer MEDICARE ==
[2022-01-18 12:53] LABS: BASOPHILS % (AUTO) 0.7 % (0.0-5.0); EOSINOPHILS % (AUTO) 1.4 % (0.0-8.0); HEMATOCRIT 42.5 % (36-48); LYMPHOCYTES % (AUTO) 24.8 % (21.0-51.0); MEAN CORPUSCULAR HEMOGLOBIN 27.7 pg (27.0-33.0); MEAN CORPUSCULAR HGB CONC 32.2 g/dL (32.0-36.0); MONOCYTES % (AUTO) 13.2 % (3.0-13.0); NEUTROPHILS % (AUTO) 59.7 % (40.0-77.0); PLATELET COUNT (AUTO) 124 K/uL (130-400); RED BLOOD CELL COUNT(AUTO) 4.94 MIL/uL (4.00-5.50); RED CELL DISTRIBUTION WIDTH 22.8 % (11.0-15.5); WHITE BLOOD COUNT (AUTO) 5.5 K/uL (4.8-10.8)
[2022-01-18 13:05] LABS: CREATININE 1.5 mg/dL (0.5-1.5)
[2022-01-18 13:13] LABS: POTASSIUM 2.6 mmol/L (3.5-5.1)
[2022-01-19 09:50] VITALS: BP 107/67
[2022-01-20] VITALS (15 sets, daily range): BP systolic 90–115; BP diastolic 54–75
[~2022-01-20] VITALS: Ht 149.9 cm; Wt 78.5 kg
[~2022-01-20 06:03] MED LIST changes: +ALLO100T PO; +CEPH500B PO; +FISH1CAP27 PO; -FURO20TA6 PO; +HYDR-3421 PO; -LOVA20TA3 PO; +METO25TA6 PO; -PANT40TA PO; +PANT40TA55 PO; +POTA-79 PO; -ROPI0.5T7 PO; +ROPI2TAB7 PO; -SPIR25TA6 PO; +TORS20TA4 PO
[2022-01-20] MEDS ORDERED: CEFAZOLIN SODIUM 1 GM VIAL ONE (06:37)
[2022-01-20] MEDS ORDERED: LACTATED RINGERS 1000ML 1,000 ML IV ONE (06:37)
[2022-01-20] MEDS ORDERED: ROPI2TAB7 PO (07:59)
[2022-01-20] MEDS ORDERED: CETI10TA57 PO (07:59)
[2022-01-20] MEDS ORDERED: CYAN1TAB44 PO (07:59)
[2022-01-20] MEDS ORDERED: TORS20TA4 PO (07:59)
[2022-01-20] MEDS ORDERED: ROSU10TA28 PO (07:59)
[2022-01-20] MEDS ORDERED: MV-M1TAB20 PO (07:59)
[2022-01-20] MEDS ORDERED: METO2.5T2 PO (07:59)
[2022-01-20] MEDS ORDERED: POTA-79 PO (07:59)
[2022-01-20] MEDS ORDERED: FERR-82 PO (07:59)
[2022-01-20] MEDS ORDERED: CEFAZOLIN SODIUM 1 GM VIAL IVP ONE (08:00)
[2022-01-20] MEDS ORDERED: FENTANYL CITRATE PF 50 MCG/1 ML 5ML AMP IV ONE (08:48)
[2022-01-20] MEDS ORDERED: MIDAZOLAM HCL 1 MG/ML 2ML VIAL ONE (08:48)
== END 2022-01-20 11:37 | disposition home or self-care (01) ==
LOC: DAH 06:03
PROVIDERS: ATTEND Neurological Surgery
DX: G56.02 Carpal tunnel syndrome, left upper limb (principal); Z20.822 Contact with and (suspected) exposure to COVID-19; M1A.9XX1 Chronic gout, unspecified, with tophus (tophi); I48.0 Paroxysmal atrial fibrillation; I25.10 Atherosclerotic heart disease of native coronary artery without angina pectoris; E66.9 Obesity, unspecified; E11.9 Type 2 diabetes mellitus without complications; I10 Essential (primary) hypertension; Z95.0 Presence of cardiac pacemaker; Z79.899 Other long term (current) drug therapy; Z98.890 Other specified postprocedural states
CPT/HCPCS: 25066; 36415 ×3; 64721; 80048; 84132 ×2; 85025; 87070; 87635; 93005; A4215 ×2; A4216; A4221; A4222; A4223 ×2; A4510; A4600; A4663; A6260; C9803; J0690; J2250; J3010; J7120

== ENCOUNTER → 2022-03-23 | Outpatient (CLI) | payer MEDICARE ==
[~2022-03-23] MED LIST changes: -ALLO100T PO; -CEPH500B PO; +CETI10TA57 PO; -FISH1CAP27 PO; -HYDR-3421 PO; +METO2.5T2 PO; +MYCO500T5 PO; +OMEG100014 PO; -OMEGA 3 ACID PO; -RIVA20TA PO; +ROSU10TA28 PO
== END | disposition home or self-care (01) ==
LOC: RAH 15:01
PROVIDERS: ATTEND Physical Medicine & Rehabilitation
DX: M47.816 Spondylosis without myelopathy or radiculopathy, lumbar region (principal)
CPT/HCPCS: 72131

== ENCOUNTER → 2022-05-11 | Outpatient (CLI) | payer MEDICARE ==
[~2022-05-11] MED LIST changes: -PANT40TA55 PO
== END | disposition home or self-care (01) ==
LOC: RAH 14:07
PROVIDERS: ATTEND Physical Medicine & Rehabilitation
DX: M47.812 Spondylosis without myelopathy or radiculopathy, cervical region (principal); M48.02 Spinal stenosis, cervical region; I70.90 Unspecified atherosclerosis
CPT/HCPCS: 72125

== ENCOUNTER → 2022-10-11 | Outpatient (CLI) | payer MEDICARE | END | disposition home or self-care (01) | LOC: RAH 12:23 | PROVIDERS: ATTEND Physical Medicine & Rehabilitation | DX: M47.814 Spondylosis without myelopathy or radiculopathy, thoracic region (principal); M47.816 Spondylosis without myelopathy or radiculopathy, lumbar region; M54.6 Pain in thoracic spine; M54.50 Low back pain, unspecified; M85.88 Other specified disorders of bone density and structure, other site | CPT/HCPCS: 72072; 72100 ==

== ENCOUNTER → 2022-10-13 | Outpatient (CLI) | payer MEDICARE ==
[2022-10-13 15:15] LABS: ALBUMIN 3.2 g/dL (3.5-5.0); CREATININE 1.3 mg/dL (0.5-1.5); TOTAL PROTEIN, SERUM 7.4 g/dL (6.0-8.3)
[2022-10-13 15:22] LABS: POTASSIUM 2.8 mmol/L (3.5-5.1)
== END | disposition home or self-care (01) ==
LOC: LAB 14:22
PROVIDERS: ATTEND Internal Medicine Cardiovascular Disease
DX: I25.10 Atherosclerotic heart disease of native coronary artery without angina pectoris (principal); R06.00 Dyspnea, unspecified; R60.9 Edema, unspecified
CPT/HCPCS: 36415; 80053; 83735; 83880

== ENCOUNTER 2023-02-04 17:23 | Emergency (ER) | payer MEDICARE ==
[~2023-02-04] VITALS: Ht 152.4 cm; Wt 77.6 kg
[2023-02-04 18:05] LABS: BASOPHILS % (AUTO) 0.9 % (0.0-5.0); EOSINOPHILS % (AUTO) 2.4 % (0.0-8.0); HEMATOCRIT 31.7 % (36-48); LYMPHOCYTES % (AUTO) 25.3 % (21.0-51.0); MEAN CORPUSCULAR HEMOGLOBIN 27.6 pg (27.0-33.0); MEAN CORPUSCULAR HGB CONC 32.2 g/dL (32.0-36.0); MEAN CORPUSCULAR VOLUME 85.9 fL (79-99); MONOCYTES % (AUTO) 15.5 % (3.0-13.0); NEUTROPHILS % (AUTO) 55.7 % (40.0-77.0); PLATELET COUNT (AUTO) 140 K/uL (130-400); RED BLOOD CELL COUNT(AUTO) 3.69 MIL/uL (4.00-5.50); RED CELL DISTRIBUTION WIDTH 14.6 % (11.0-15.5); WHITE BLOOD COUNT (AUTO) 4.6 K/uL (4.8-10.8)
[2023-02-04 18:17] LABS: CREATININE 1.7 mg/dL (0.5-1.5); POTASSIUM 3.2 mmol/L (3.5-5.1)
[2023-02-04 18:24] LABS: TOTAL PROTEIN, SERUM 7.4 g/dL (6.0-8.3)
[2023-02-04] MEDS ORDERED: ACETAMINOPHEN 500 MG TABLET PO ONE (20:00)
[2023-02-04] MEDS ORDERED: CEPHALEXIN 500 MG CAPSULE PO ONE (20:00)
[2023-02-04] MEDS ORDERED: CEPH500B PO (21:04)
[2023-02-04] MEDS ORDERED: ACET-66 PO (21:04)
[2023-02-04 21:26] VITALS: BP 106/59
== END 2023-02-04 21:42 | disposition home or self-care (01) ==
LOC: EDH 17:23
DX: S41.111A Laceration without foreign body of right upper arm, initial encounter (principal); S01.511A Laceration without foreign body of lip, initial encounter; S50.312A Abrasion of left elbow, initial encounter; S60.812A Abrasion of left wrist, initial encounter; I11.0 Hypertensive heart disease with heart failure; I50.9 Heart failure, unspecified; I48.91 Unspecified atrial fibrillation; K21.9 Gastro-esophageal reflux disease without esophagitis; Z79.899 Other long term (current) drug therapy; Z98.890 Other specified postprocedural states; W18.39XA Other fall on same level, initial encounter; Y93.89 Activity, other specified; Y92.091 Bathroom in other non-institutional residence as the place of occurrence of the external cause; Y99.8 Other external cause status
CPT/HCPCS: 36415; 70450; 71045; 72125; 73562; 80053; 84484; 85025; 93005

== ENCOUNTER → 2023-04-07 | Outpatient (CLI) | payer MEDICARE ==
[~2023-04-07] MED LIST changes: +ACET-66 PO; +CEPH500B PO; +POTA-364 PO; -POTA-79 PO
[2023-04-07 13:00] LABS: CREATININE 1.8 mg/dL (0.5-1.5)
[2023-04-07 13:16] LABS: POTASSIUM 2.8 mmol/L (3.5-5.1)
== END | disposition home or self-care (01) ==
LOC: LAB 11:07
PROVIDERS: ATTEND Internal Medicine Cardiovascular Disease
DX: R60.9 Edema, unspecified (principal)
CPT/HCPCS: 36415; 80048; 83880

== ENCOUNTER 2023-05-24 10:19 | Inpatient (IN) | payer MEDICARE ==
[~2023-05-24] VITALS: Ht 149.9 cm; Wt 83.5 kg
[~2023-05-24 10:19] MED LIST changes: +ALBU0.63 IH; +ALPR0.5T PO; +FEBU40TA3 PO; +FERR-72 PO; +HYDR-3421 PO; +LACT10SO9 PO; +PANT40TA54 PO; +POTA-202 PO; +PREG50 PO; +RIVA15TA PO; +ROPI2TAB53 PO; -ROPI2TAB7 PO; +URSO300C4 PO
[2023-05-24 10:44] LABS: BASOPHILS # (AUTO) 0.02 K/uL (0.00-0.20); BASOPHILS % (AUTO) 0.3 % (0.0-5.0); EOSINOPHILS # (AUTO) 0.03 K/uL (0.00-0.70); EOSINOPHILS % (AUTO) 0.5 % (0.0-8.0); HEMATOCRIT 24.7 % (36-48); IMMATURE GRANULOCYTE ABSOLUTE 0.03 K/uL (0-1); LYMPHOCYTES # (AUTO) 0.8 K/uL (1.0-4.8); LYMPHOCYTES % (AUTO) 14.4 % (21.0-51.0); MEAN CORPUSCULAR HEMOGLOBIN 27.9 pg (27.0-33.0); MEAN CORPUSCULAR HGB CONC 33.2 g/dL (32.0-36.0); MONOCYTES # (AUTO) 1.3 K/uL (0.1-1.0); MONOCYTES % (AUTO) 22.3 % (3.0-13.0); NEUTROPHILS # (AUTO) 3.6 K/uL (1.8-7.7); PLATELET COUNT (AUTO) 118 K/uL (130-400); RED BLOOD CELL COUNT(AUTO) 2.94 MIL/uL (4.00-5.50); RED CELL DISTRIBUTION WIDTH 18.7 % (11.0-15.5); WHITE BLOOD COUNT (AUTO) 5.8 K/uL (4.8-10.8)
[2023-05-24 10:58] LABS: BILIRUBIN,TOTAL 1.9 mg/dL (0.2-1.0); MAGNESIUM 2.2 mg/dL (1.80-2.40); TOTAL PROTEIN, SERUM 6.5 g/dL (6.0-8.3)
[2023-05-24 11:04] LABS: CREATININE 2.6 mg/dL (0.5-1.5)
[2023-05-24 11:07] LABS: POTASSIUM 2.4 mmol/L (3.5-5.1)
[2023-05-24] MEDS ORDERED: ENOXAPARIN SODIUM 80 MG/0.8 ML SQ ONE (11:28)
[2023-05-24] MEDS ORDERED: ASPIRIN 325MG TAB PO ONE (11:30)
[2023-05-24] MEDS ORDERED: POTASSIUM BICARB/CIT AC 25 MEQ TABLET.EFF PO ONE (11:30)
[2023-05-24] MEDS: NITROGLYCERIN 1GM OINT 1 INCH/1GM TD ONE ×2 (11:35→11:55)
[2023-05-24 11:40] LABS: B-TYPE NATRIURETIC PEPTIDE 1490 pg/mL (0-100)
[2023-05-24] MEDS ORDERED: GLUCAGON 1MG KIT 1 MG ML IM PRN (15:30)
[2023-05-24] MEDS ORDERED: DEXTROSE 50%-WATER 50 ML DISP.SYRIN IV PRN (15:30)
[2023-05-24] MEDS ORDERED: MAGNESIUM 2GM PREMIX 50ML 50 ML IV PRN (15:30)
[2023-05-24] MEDS ORDERED: FUROSEMIDE 40MG VIAL IV ONE (16:00)
[2023-05-24] MEDS ORDERED: METOLAZONE 2.5 MG TABLET PO SCH (16:00)
[2023-05-24] MEDS ORDERED: FUROSEMIDE 100MG VIAL 100 MG in 0.9%NACL 100ML 100 ML IV SCH (16:00)
[2023-05-24] MEDS: MIDODRINE HCL 5 MG TABLET PO SCH (16:26)
[2023-05-24] MEDS: INSULIN HUMULIN R 100 UNIT/ML 3ML SQ SCH ×2 (16:30→21:00)
[2023-05-24] MEDS: FUROSEMIDE 100 MG/NS 100ML IV SCH ×2 (16:59)
[2023-05-24] MEDS ORDERED: MIDODRINE HCL 5 MG TABLET PO PRN (18:00)
[2023-05-24] MEDS ORDERED: POTASSIUM CHLORIDE 10MEQ/100ML 100 ML IV PRN (20:30)
[2023-05-24] MEDS ORDERED: SPIRONOLACTONE 25 MG TAB PO SCH (21:00)
[2023-05-24] MEDS ORDERED: FUROSEMIDE 40MG VIAL IVP SCH (21:00)
[2023-05-24] MEDS: FAMOTIDINE 20MG TAB PO SCH (22:01)
[2023-05-24] MEDS: APIXABAN 2.5 MG TABLET PO SCH (22:01)
[2023-05-24 22:04] LABS: MAGNESIUM 2.2 mg/dL (1.80-2.40)
[2023-05-24] MEDS: PANTOPRAZOLE 40 MG TAB DR PO SCH (22:05)
[2023-05-24 22:08] LABS: POTASSIUM 2.6 mmol/L (3.5-5.1)
[2023-05-24] MEDS: SUCRALFATE 1 GM TABLET PO SCH (22:14)
[2023-05-24 23:06] LABS: APPEARANCE,URINE CLEAR (CLEAR); BILIRUBIN,URINE NEGATIVE (NEGATIVE); COLOR,URINE LIGHT-YELLOW (YELLOW); GLUCOSE, URINE (UA) NEGATIVE (NEGATIVE); KETONES,URINE NEGATIVE (NEGATIVE); LEUKOCYTE ESTERASE ,URINE NEGATIVE Leu/uL (NEGATIVE); NITRATE,URINE NEGATIVE (NEGATIVE); OCCULT BLOOD,URINE NEGATIVE (NEGATIVE); PH,URINE 5.5 (5.0-8.0); PROTEIN,URINE NEGATIVE (NEGATIVE); UROBILINOGEN,URINE 0.2 mg/dL (0.2-1.0)
[2023-05-24] MEDS ORDERED: NOREPINEPHRIN 4MG/NS 250ML 250 ML IV ONE (23:06)
[2023-05-24 23:08] LABS: ADD UA MICROSCOPIC NO
[2023-05-24] MEDS: NOREPINEPHRIN 4MG/NS 250ML 250 ML IV SCH (23:08)
[2023-05-25] VITALS (81 sets, daily range): BP systolic 80–115; BP diastolic 36–83; PULSE 66–85; RESP 6–27; O2SAT 95–100
[2023-05-25] MEDS ORDERED: FUROSEMIDE 40MG VIAL ONE (02:19)
[2023-05-25] MEDS ORDERED: FUROSEMIDE 20MG VIAL ONE (02:19)
[2023-05-25] MEDS: FUROSEMIDE 100 MG/NS 100ML IV SCH ×2 (02:23)
[2023-05-25] MEDS: POTASSIUM CHLORIDE 10% ELIXIR 20 MEQ/15 ML UDCUP PO PRN ×2 (03:54→04:50)
[2023-05-25] MEDS: SUCRALFATE 1 GM TABLET PO SCH ×3 (06:34→21:49)
[2023-05-25] MEDS: LEVOTHYROXINE 75 MCG TABLET PO SCH (06:34)
[2023-05-25 06:39] LABS: BASOPHILS # (AUTO) 0.03 K/uL (0.00-0.20); BASOPHILS % (AUTO) 0.5 % (0.0-5.0); EOSINOPHILS # (AUTO) 0.03 K/uL (0.00-0.70); EOSINOPHILS % (AUTO) 0.5 % (0.0-8.0); HEMATOCRIT 25.8 % (36-48); IMMATURE GRANULOCYTE ABSOLUTE 0.02 K/uL (0-1); LYMPHOCYTES # (AUTO) 0.6 K/uL (1.0-4.8); LYMPHOCYTES % (AUTO) 9.6 % (21.0-51.0); MEAN CORPUSCULAR HGB CONC 33.7 g/dL (32.0-36.0); MONOCYTES # (AUTO) 1.4 K/uL (0.1-1.0); NEUTROPHILS # (AUTO) 3.9 K/uL (1.8-7.7); NEUTROPHILS % (AUTO) 65.1 % (40.0-77.0); PLATELET COUNT (AUTO) 114 K/uL (130-400); RED BLOOD CELL COUNT(AUTO) 3.11 MIL/uL (4.00-5.50); RED CELL DISTRIBUTION WIDTH 18.6 % (11.0-15.5)
[2023-05-25] MEDS: INSULIN HUMULIN R 100 UNIT/ML 3ML SQ SCH ×2 (06:41→11:28)
[2023-05-25 06:53] LABS: ALBUMIN 2.9 g/dL (3.5-5.0); BILIRUBIN,TOTAL 1.8 mg/dL (0.2-1.0); CREATININE 2.5 mg/dL (0.5-1.5); POTASSIUM 3.5 mmol/L (3.5-5.1); TOTAL PROTEIN, SERUM 6.3 g/dL (6.0-8.3)
[2023-05-25] MEDS: PANTOPRAZOLE 40 MG TAB DR PO SCH ×2 (09:19→21:49)
[2023-05-25] MEDS: KCL 20 MEQ ERTAB PO SCH (09:21)
[2023-05-25] MEDS: APIXABAN 2.5 MG TABLET PO SCH ×2 (09:21→21:48)
[2023-05-25] MEDS: NOREPINEPHRIN 4MG/NS 250ML 250 ML IV SCH ×2 (12:06→18:50)
[2023-05-25] MEDS ORDERED: COMPOUND IV MISC 1 EACH IVSOLN MISC PRN (13:00)
[2023-05-25] MEDS: MEROPENEM 500 MG in 0.9%NACL 100ML 100 ML IV SCH (13:07)
[2023-05-25] MEDS: MIDODRINE HCL 5 MG TABLET PO SCH ×3 (13:08→21:48)
[2023-05-25] MEDS ORDERED: HYDROXYZINE 25 MG TABLET PO PRN (14:30)
[2023-05-25] MEDS: URSODIOL 300 MG CAPSULE PO SCH (21:48)
[2023-05-25] MEDS: LACTULOSE 20 GM/30 ML UDCUP PO SCH (21:48)
[2023-05-25] MEDS: FAMOTIDINE 20MG TAB PO SCH (21:49)
[2023-05-25] MEDS: FISH OIL 1000 MG/CAP PO SCH (21:49)
[2023-05-25] MEDS: PREGABALIN 25 MG CAP PO SCH (21:49)
[2023-05-26] VITALS (98 sets, daily range): BP systolic 63–126; BP diastolic 32–97; PULSE 69–81; RESP 12–28; O2SAT 93–98
[2023-05-26] MEDS: MEROPENEM 500 MG in 0.9%NACL 100ML 100 ML IV SCH ×2 (00:09→11:57)
[2023-05-26] MEDS: FUROSEMIDE 100 MG/NS 100ML IV SCH ×2 (00:12)
[2023-05-26] MEDS: NOREPINEPHRIN 4MG/NS 250ML 250 ML IV SCH ×3 (03:12→18:20)
[2023-05-26 04:26] LABS: BASOPHILS # (AUTO) 0.05 K/uL (0.00-0.20); BASOPHILS % (AUTO) 0.7 % (0.0-5.0); EOSINOPHILS # (AUTO) 0.05 K/uL (0.00-0.70); EOSINOPHILS % (AUTO) 0.7 % (0.0-8.0); HEMATOCRIT 26.5 % (36-48); IMMATURE GRANULOCYTE ABSOLUTE 0.03 K/uL (0-1); LYMPHOCYTES # (AUTO) 1.6 K/uL (1.0-4.8); LYMPHOCYTES % (AUTO) 21.7 % (21.0-51.0); MEAN CORPUSCULAR HEMOGLOBIN 27.7 pg (27.0-33.0); MEAN CORPUSCULAR HGB CONC 32.8 g/dL (32.0-36.0); MEAN CORPUSCULAR VOLUME 84.4 fL (79-99); MONOCYTES # (AUTO) 1.8 K/uL (0.1-1.0); MONOCYTES % (AUTO) 24.8 % (3.0-13.0); NEUTROPHILS # (AUTO) 3.8 K/uL (1.8-7.7); NEUTROPHILS % (AUTO) 51.7 % (40.0-77.0); NUCLEATED RED BLOOD CELLS 0.3 % (0.0-0.19); PLATELET COUNT (AUTO) 113 K/uL (130-400); RED BLOOD CELL COUNT(AUTO) 3.14 MIL/uL (4.00-5.50); RED CELL DISTRIBUTION WIDTH 18.3 % (11.0-15.5); WHITE BLOOD COUNT (AUTO) 7.3 K/uL (4.8-10.8)
[2023-05-26 04:37] LABS: INR 1.82 (0.85-1.15); PROTHROMBIN TIME 20.3 SEC (9.6-11.6)
[2023-05-26 04:38] LABS: PARTIAL THROMBOPLASTIN TIME 39.7 SEC (26.3-35.5)
[2023-05-26 04:46] LABS: B-TYPE NATRIURETIC PEPTIDE 1210 pg/mL (0-100)
[2023-05-26 04:49] LABS: ALBUMIN 2.8 g/dL (3.5-5.0); BILIRUBIN,TOTAL 1.9 mg/dL (0.2-1.0); CREATININE 2.2 mg/dL (0.5-1.5); TOTAL PROTEIN, SERUM 6.3 g/dL (6.0-8.3)
[2023-05-26 05:02] LABS: POTASSIUM 2.8 mmol/L (3.5-5.1)
[2023-05-26] MEDS: SUCRALFATE 1 GM TABLET PO SCH ×3 (05:25→22:29)
[2023-05-26] MEDS: LEVOTHYROXINE 75 MCG TABLET PO SCH (05:26)
[2023-05-26] MEDS: KCL 20 MEQ ERTAB PO SCH (05:27)
[2023-05-26] MEDS ORDERED: LEVOTHYROXINE 75 MCG TABLET PO SCH (06:30)
[2023-05-26] MEDS: URSODIOL 300 MG CAPSULE PO SCH ×3 (08:23→20:04)
[2023-05-26] MEDS: LACTULOSE 20 GM/30 ML UDCUP PO SCH ×3 (08:23→20:03)
[2023-05-26] MEDS: PANTOPRAZOLE 40 MG TAB DR PO SCH ×2 (08:25→20:04)
[2023-05-26] MEDS: APIXABAN 2.5 MG TABLET PO SCH ×2 (08:25→20:04)
[2023-05-26] MEDS: FERROUS SULFATE 325 MG TABLET.DR PO SCH (08:26)
[2023-05-26] MEDS: PREGABALIN 25 MG CAP PO SCH ×2 (08:26→20:05)
[2023-05-26] MEDS: FISH OIL 1000 MG/CAP PO SCH ×3 (08:26→20:04)
[2023-05-26] MEDS: MIDODRINE HCL 5 MG TABLET PO SCH ×3 (08:26→20:05)
[2023-05-26] MEDS: FEBUXOSTAT 40 MG PO SCH ×2 (08:34→23:42)
[2023-05-26] MEDS: FUROSEMIDE 40MG VIAL IV SCH ×2 (10:23→18:23)
[2023-05-26] MEDS: KCL 20 MEQ ERTAB PO PRN ×6 (10:24→22:29)
[2023-05-26] MEDS: FAMOTIDINE 20MG TAB PO SCH (20:04)
[2023-05-26] MEDS: POTASSIUM CHLORIDE 10% ELIXIR 20 MEQ/15 ML UDCUP PO PRN ×2 (20:06→22:30)
[2023-05-27] VITALS (106 sets, daily range): BP systolic 74–125; BP diastolic 25–80; PULSE 66–76; RESP 8–35; O2SAT 94–98
[2023-05-27] MEDS: MEROPENEM 500 MG in 0.9%NACL 100ML 100 ML IV SCH ×2 (00:01→16:59)
[2023-05-27] MEDS: FUROSEMIDE 40MG VIAL IV SCH ×3 (03:04→17:02)
[2023-05-27] MEDS: NOREPINEPHRIN 4MG/NS 250ML 250 ML IV SCH ×2 (03:16→19:39)
[2023-05-27 04:15] LABS: BASOPHILS # (AUTO) 0.02 K/uL (0.00-0.20); BASOPHILS % (AUTO) 0.3 % (0.0-5.0); EOSINOPHILS # (AUTO) 0.08 K/uL (0.00-0.70); EOSINOPHILS % (AUTO) 1.3 % (0.0-8.0); HEMATOCRIT 26.1 % (36-48); IMMATURE GRANULOCYTE ABSOLUTE 0.03 K/uL (0-1); LYMPHOCYTES # (AUTO) 1.3 K/uL (1.0-4.8); LYMPHOCYTES % (AUTO) 20.1 % (21.0-51.0); MEAN CORPUSCULAR HEMOGLOBIN 27.2 pg (27.0-33.0); MEAN CORPUSCULAR HGB CONC 32.6 g/dL (32.0-36.0); MEAN CORPUSCULAR VOLUME 83.7 fL (79-99); MONOCYTES # (AUTO) 1.4 K/uL (0.1-1.0); MONOCYTES % (AUTO) 22.5 % (3.0-13.0); NEUTROPHILS # (AUTO) 3.4 K/uL (1.8-7.7); NEUTROPHILS % (AUTO) 55.3 % (40.0-77.0); NUCLEATED RED BLOOD CELLS 0.3 % (0.0-0.19); PLATELET COUNT (AUTO) 96 K/uL (130-400); RED BLOOD CELL COUNT(AUTO) 3.12 MIL/uL (4.00-5.50); WHITE BLOOD COUNT (AUTO) 6.2 K/uL (4.8-10.8)
[2023-05-27 04:33] LABS: ALBUMIN 2.8 g/dL (3.5-5.0); CREATININE 1.8 mg/dL (0.5-1.5); POTASSIUM 3.1 mmol/L (3.5-5.1); TOTAL PROTEIN, SERUM 6.2 g/dL (6.0-8.3)
[2023-05-27] MEDS: POTASSIUM CHLORIDE 10% ELIXIR 20 MEQ/15 ML UDCUP PO PRN (05:29)
[2023-05-27] MEDS: SUCRALFATE 1 GM TABLET PO SCH ×3 (05:29→20:29)
[2023-05-27] MEDS ORDERED: HYDROMORPHONE 0.5 MG SYG (0.5MG/0.5ML) IVP ONE (05:30)
[2023-05-27] MEDS: LEVOTHYROXINE 75 MCG TABLET PO SCH (05:31)
[2023-05-27] MEDS: KCL 20 MEQ ERTAB PO PRN ×2 (05:31→13:07)
[2023-05-27] MEDS: PANTOPRAZOLE 40 MG TAB DR PO SCH ×2 (09:00→20:29)
[2023-05-27] MEDS: LACTULOSE 20 GM/30 ML UDCUP PO SCH ×3 (09:00→20:27)
[2023-05-27] MEDS: PREGABALIN 25 MG CAP PO SCH ×2 (09:01→20:28)
[2023-05-27] MEDS: FISH OIL 1000 MG/CAP PO SCH ×3 (09:01→20:27)
[2023-05-27] MEDS: KCL 20 MEQ ERTAB PO SCH (09:01)
[2023-05-27] MEDS: MIDODRINE HCL 5 MG TABLET PO SCH ×3 (09:02→20:28)
[2023-05-27] MEDS: URSODIOL 300 MG CAPSULE PO SCH ×3 (09:02→20:29)
[2023-05-27] MEDS: APIXABAN 2.5 MG TABLET PO SCH ×2 (09:02→20:29)
[2023-05-27] MEDS: FERROUS SULFATE 325 MG TABLET.DR PO SCH (09:03)
[2023-05-27] MEDS ORDERED: LIDOCAINE HCL 5% OINT 50GM 1 APPL/GM TUBE TP PRN (10:30)
[2023-05-27] MEDS: GUAIFENESIN SUGAR-FREE 100 MG/5 ML UDCUP PO PRN (17:20)
[2023-05-27] MEDS ORDERED: ALBUMIN (HUMAN) 25% 50 ML IV SCH (20:00)
[2023-05-27] MEDS: FAMOTIDINE 20MG TAB PO SCH (20:29)
[2023-05-28] VITALS (100 sets, daily range): BP systolic 79–114; BP diastolic 31–58; PULSE 69–95; RESP 12–26; O2SAT 98–100
[2023-05-28] MEDS: MEROPENEM 500 MG in 0.9%NACL 100ML 100 ML IV SCH ×3 (00:27→16:18)
[2023-05-28] MEDS: NOREPINEPHRIN 4MG/NS 250ML 250 ML IV SCH ×3 (00:40→13:58)
[2023-05-28] MEDS: FUROSEMIDE 40MG VIAL IV SCH ×3 (02:38→17:34)
[2023-05-28 04:18] LABS: BASOPHILS # (AUTO) 0.04 K/uL (0.00-0.20); BASOPHILS % (AUTO) 0.4 % (0.0-5.0); EOSINOPHILS # (AUTO) 0.03 K/uL (0.00-0.70); EOSINOPHILS % (AUTO) 0.3 % (0.0-8.0); HEMATOCRIT 25.9 % (36-48); IMMATURE GRANULOCYTE ABSOLUTE 0.05 K/uL (0-1); LYMPHOCYTES # (AUTO) 1.6 K/uL (1.0-4.8); LYMPHOCYTES % (AUTO) 15.4 % (21.0-51.0); MEAN CORPUSCULAR HEMOGLOBIN 27.5 pg (27.0-33.0); MEAN CORPUSCULAR VOLUME 85.8 fL (79-99); MONOCYTES # (AUTO) 2.1 K/uL (0.1-1.0); MONOCYTES % (AUTO) 20.2 % (3.0-13.0); NEUTROPHILS # (AUTO) 6.5 K/uL (1.8-7.7); NEUTROPHILS % (AUTO) 63.2 % (40.0-77.0); NUCLEATED RED BLOOD CELLS 0.5 % (0.0-0.19); PLATELET COUNT (AUTO) 132 K/uL (130-400); RED BLOOD CELL COUNT(AUTO) 3.02 MIL/uL (4.00-5.50); RED CELL DISTRIBUTION WIDTH 18.5 % (11.0-15.5); WHITE BLOOD COUNT (AUTO) 10.2 K/uL (4.8-10.8)
[2023-05-28 04:33] LABS: ALBUMIN 2.8 g/dL (3.5-5.0); BILIRUBIN,TOTAL 1.9 mg/dL (0.2-1.0); CREATININE 1.8 mg/dL (0.5-1.5); POTASSIUM 3.6 mmol/L (3.5-5.1); TOTAL PROTEIN, SERUM 6.3 g/dL (6.0-8.3)
[2023-05-28] MEDS: SUCRALFATE 1 GM TABLET PO SCH ×3 (06:11→19:53)
[2023-05-28] MEDS: LEVOTHYROXINE 75 MCG TABLET PO SCH (06:11)
[2023-05-28] MEDS: KCL 20 MEQ ERTAB PO PRN (06:13)
[2023-05-28] MEDS: PREGABALIN 25 MG CAP PO SCH ×2 (07:48→19:54)
[2023-05-28] MEDS: LACTULOSE 20 GM/30 ML UDCUP PO SCH ×3 (07:48→19:53)
[2023-05-28] MEDS: URSODIOL 300 MG CAPSULE PO SCH ×3 (07:49→19:53)
[2023-05-28] MEDS: KCL 20 MEQ ERTAB PO SCH (07:49)
[2023-05-28] MEDS: PANTOPRAZOLE 40 MG TAB DR PO SCH ×2 (07:50→19:54)
[2023-05-28] MEDS: FISH OIL 1000 MG/CAP PO SCH ×3 (07:50→19:54)
[2023-05-28] MEDS: MIDODRINE HCL 5 MG TABLET PO SCH ×3 (07:50→19:53)
[2023-05-28] MEDS: FERROUS SULFATE 325 MG TABLET.DR PO SCH (07:51)
[2023-05-28] MEDS: APIXABAN 2.5 MG TABLET PO SCH ×2 (07:51→19:54)
[2023-05-28] MEDS: FEBUXOSTAT 40 MG PO SCH (08:19)
[2023-05-28] MEDS: GUAIFENESIN SUGAR-FREE 100 MG/5 ML UDCUP PO PRN (08:33)
[2023-05-28] MEDS ORDERED: ACETAMINOPHEN 325 MG TAB PO PRN (11:00)
[2023-05-28] MEDS: FAMOTIDINE 20MG TAB PO SCH (19:53)
[2023-05-28] MEDS ORDERED: KETOROLAC 15MG/ML VIAL (15MG/ML) IV PRN (23:00)
[2023-05-28] MEDS ORDERED: ALPRAZOLAM 0.5 MG TABLET PO PRN (23:00)
[2023-05-28] MEDS ORDERED: ALPRAZOLAM 0.5 MG TABLET ONE (23:16)
[2023-05-29] VITALS (95 sets, daily range): BP systolic 76–120; BP diastolic 32–63; PULSE 68–80; RESP 12–24; O2SAT 94–97
[2023-05-29] MEDS: MEROPENEM 500 MG in 0.9%NACL 100ML 100 ML IV SCH ×3 (00:10→15:25)
[2023-05-29] MEDS: NOREPINEPHRIN 4MG/NS 250ML 250 ML IV SCH ×2 (00:26→16:16)
[2023-05-29] MEDS: FUROSEMIDE 40MG VIAL IV SCH ×3 (02:14→17:40)
[2023-05-29 06:00] LABS: PHOSPHORUS 3.6 mg/dL (2.5-4.9)
[2023-05-29] MEDS: SUCRALFATE 1 GM TABLET PO SCH ×3 (06:20→20:00)
[2023-05-29] MEDS: LEVOTHYROXINE 75 MCG TABLET PO SCH (06:20)
[2023-05-29 06:34] LABS: MEAN CORPUSCULAR HEMOGLOBIN 27.7 pg (27.0-33.0); MEAN CORPUSCULAR HGB CONC 31.9 g/dL (32.0-36.0); MEAN CORPUSCULAR VOLUME 86.7 fL (79-99); NUCLEATED RED BLOOD CELLS 0.3 % (0.0-0.19); RED CELL DISTRIBUTION WIDTH 18.7 % (11.0-15.5)
[2023-05-29] MEDS: FERROUS SULFATE 325 MG TABLET.DR PO SCH (08:07)
[2023-05-29] MEDS: URSODIOL 300 MG CAPSULE PO SCH ×3 (08:07→20:00)
[2023-05-29] MEDS: APIXABAN 2.5 MG TABLET PO SCH ×2 (08:07→20:01)
[2023-05-29] MEDS: FISH OIL 1000 MG/CAP PO SCH ×3 (08:08→20:00)
[2023-05-29] MEDS: LACTULOSE 20 GM/30 ML UDCUP PO SCH ×3 (08:08→20:00)
[2023-05-29] MEDS: PREGABALIN 25 MG CAP PO SCH ×2 (08:08→20:00)
[2023-05-29] MEDS: PANTOPRAZOLE 40 MG TAB DR PO SCH ×2 (08:08→20:00)
[2023-05-29] MEDS: MIDODRINE HCL 5 MG TABLET PO SCH ×3 (08:08→20:00)
[2023-05-29] MEDS: KCL 20 MEQ ERTAB PO SCH (08:09)
[2023-05-29] MEDS: FEBUXOSTAT 40 MG PO SCH (08:12)
[2023-05-29 09:05] LABS: ALBUMIN 2.7 g/dL (3.5-5.0); BILIRUBIN,TOTAL 1.7 mg/dL (0.2-1.0); CREATININE 1.6 mg/dL (0.5-1.5); POTASSIUM 3.2 mmol/L (3.5-5.1); TOTAL PROTEIN, SERUM 6.4 g/dL (6.0-8.3)
[2023-05-29] MEDS ORDERED: TRAMADOL HCL 50 MG TABLET PO PRN (10:00)
[2023-05-29] MEDS: KCL 20 MEQ ERTAB PO PRN (16:05)
[2023-05-29] MEDS: FAMOTIDINE 20MG TAB PO SCH (20:01)
[2023-05-29] MEDS: GUAIFENESIN SUGAR-FREE 100 MG/5 ML UDCUP PO PRN (21:09)
[2023-05-29] MEDS: QUETIAPINE FUMARATE 25 MG TAB PO PRN (22:16)
[2023-05-30] VITALS (65 sets, daily range): BP systolic 74–131; BP diastolic 20–57; PULSE 68–77; RESP 12–28; O2SAT 93–98
[2023-05-30] MEDS: MEROPENEM 500 MG in 0.9%NACL 100ML 100 ML IV SCH ×3 (00:31→16:20)
[2023-05-30] MEDS: NOREPINEPHRIN 4MG/NS 250ML 250 ML IV SCH (00:41)
[2023-05-30] MEDS: FUROSEMIDE 40MG VIAL IV SCH ×4 (02:25→21:13)
[2023-05-30] MEDS: SUCRALFATE 1 GM TABLET PO SCH ×3 (06:12→20:58)
[2023-05-30] MEDS: LEVOTHYROXINE 75 MCG TABLET PO SCH (06:12)
[2023-05-30 06:14] LABS: HEMATOCRIT 24.2 % (36-48); MEAN CORPUSCULAR HEMOGLOBIN 27.7 pg (27.0-33.0); MEAN CORPUSCULAR HGB CONC 31.8 g/dL (32.0-36.0); MEAN CORPUSCULAR VOLUME 87.1 fL (79-99); NUCLEATED RED BLOOD CELLS 0.4 % (0.0-0.19); RED BLOOD CELL COUNT(AUTO) 2.78 MIL/uL (4.00-5.50); RED CELL DISTRIBUTION WIDTH 19.4 % (11.0-15.5); WHITE BLOOD COUNT (AUTO) 7.7 K/uL (4.8-10.8)
[2023-05-30 06:51] LABS: ALBUMIN 2.6 g/dL (3.5-5.0); BILIRUBIN,TOTAL 1.5 mg/dL (0.2-1.0); CREATININE 1.5 mg/dL (0.5-1.5); MAGNESIUM 2.2 mg/dL (1.80-2.40); PHOSPHORUS 3.6 mg/dL (2.5-4.9); POTASSIUM 3.4 mmol/L (3.5-5.1); TOTAL PROTEIN, SERUM 6.1 g/dL (6.0-8.3)
[2023-05-30] MEDS: LACTULOSE 20 GM/30 ML UDCUP PO SCH ×3 (08:59→20:58)
[2023-05-30] MEDS: FISH OIL 1000 MG/CAP PO SCH ×3 (09:00→20:58)
[2023-05-30] MEDS: FERROUS SULFATE 325 MG TABLET.DR PO SCH (09:00)
[2023-05-30] MEDS: PANTOPRAZOLE 40 MG TAB DR PO SCH ×2 (09:00→20:58)
[2023-05-30] MEDS: MIDODRINE HCL 5 MG TABLET PO SCH ×3 (09:00→20:57)
[2023-05-30] MEDS: URSODIOL 300 MG CAPSULE PO SCH ×3 (09:00→20:57)
[2023-05-30] MEDS: PREGABALIN 25 MG CAP PO SCH ×2 (09:00→20:57)
[2023-05-30] MEDS: APIXABAN 2.5 MG TABLET PO SCH ×2 (09:00→20:57)
[2023-05-30] MEDS: KCL 20 MEQ ERTAB PO SCH (09:02)
[2023-05-30] MEDS: FEBUXOSTAT 40 MG PO SCH (09:03)
[2023-05-30] MEDS: KCL 20 MEQ ERTAB PO PRN ×2 (10:58→10:59)
[2023-05-30] MEDS: ALBUMIN (HUMAN) 25% 50 ML IV SCH (12:35)
[2023-05-30] MEDS ORDERED: POLYETHYLENE GLYCOL 3350 17 GM POWD.PACK PO ONE (14:00)
[2023-05-30] MEDS ORDERED: POLYETHYLENE GLYCOL 3350 17 GM POWD.PACK ONE (14:03)
[2023-05-30] MEDS: DOCUSATE SODIUM 100 MG CAP PO SCH ×2 (14:04→20:58)
[2023-05-30] MEDS: GUAIFENESIN SUGAR-FREE 100 MG/5 ML UDCUP PO PRN (20:05)
[2023-05-30] MEDS: SENNOSIDES 8.6 MG TABLET PO SCH (20:58)
[2023-05-30] MEDS: FAMOTIDINE 20MG TAB PO SCH (20:58)
[2023-05-30] MEDS ORDERED: FUROSEMIDE 40MG VIAL IV SCH (21:00)
[2023-05-31] VITALS (34 sets, daily range): BP systolic 65–127; BP diastolic 30–85; PULSE 68–134; RESP 11–33; O2SAT 97–98
[2023-05-31] MEDS: MEROPENEM 500 MG in 0.9%NACL 100ML 100 ML IV SCH ×4 (02:27→23:32)
[2023-05-31] MEDS: FUROSEMIDE 40MG VIAL IV SCH ×2 (02:29→10:00)
[2023-05-31 03:38] LABS: HEMATOCRIT 23.6 % (36-48); MEAN CORPUSCULAR HEMOGLOBIN 27.4 pg (27.0-33.0); MEAN CORPUSCULAR HGB CONC 31.8 g/dL (32.0-36.0); MEAN CORPUSCULAR VOLUME 86.1 fL (79-99); NUCLEATED RED BLOOD CELLS 0.3 % (0.0-0.19); RED BLOOD CELL COUNT(AUTO) 2.74 MIL/uL (4.00-5.50); RED CELL DISTRIBUTION WIDTH 20.3 % (11.0-15.5); WHITE BLOOD COUNT (AUTO) 6.5 K/uL (4.8-10.8)
[2023-05-31 03:58] LABS: MAGNESIUM 2.1 mg/dL (1.80-2.40); PHOSPHORUS 3.9 mg/dL (2.5-4.9)
[2023-05-31] MEDS: SUCRALFATE 1 GM TABLET PO SCH ×3 (06:49→21:29)
[2023-05-31] MEDS: LEVOTHYROXINE 75 MCG TABLET PO SCH (06:49)
[2023-05-31] MEDS: URSODIOL 300 MG CAPSULE PO SCH ×3 (08:36→21:14)
[2023-05-31] MEDS: LACTULOSE 20 GM/30 ML UDCUP PO SCH ×3 (08:36→21:00)
[2023-05-31] MEDS: KCL 20 MEQ ERTAB PO SCH (08:37)
[2023-05-31] MEDS: FISH OIL 1000 MG/CAP PO SCH ×3 (08:37→21:13)
[2023-05-31] MEDS: MIDODRINE HCL 5 MG TABLET PO SCH ×3 (08:38→21:13)
[2023-05-31] MEDS: PREGABALIN 25 MG CAP PO SCH ×2 (08:38→21:14)
[2023-05-31] MEDS: APIXABAN 2.5 MG TABLET PO SCH ×2 (08:38→21:14)
[2023-05-31] MEDS: FERROUS SULFATE 325 MG TABLET.DR PO SCH (08:38)
[2023-05-31] MEDS: FEBUXOSTAT 40 MG PO SCH (08:39)
[2023-05-31] MEDS: PANTOPRAZOLE 40 MG TAB DR PO SCH ×2 (08:39→21:13)
[2023-05-31] MEDS: ALBUMIN (HUMAN) 25% 50 ML IV SCH ×2 (08:43→16:00)
[2023-05-31] MEDS: DOCUSATE SODIUM 100 MG CAP PO SCH ×2 (08:44→21:14)
[2023-05-31] MEDS: SENNOSIDES 8.6 MG TABLET PO SCH ×2 (08:44→21:00)
[2023-05-31] MEDS: POLYETHYLENE GLYCOL 3350 17 GM POWD.PACK PO SCH (08:44)
[2023-05-31 09:31] LABS: CREATININE 1.6 mg/dL (0.5-1.5); POTASSIUM 4.2 mmol/L (3.5-5.1)
[2023-05-31 09:33] LABS: ALBUMIN 2.5 g/dL (3.5-5.0); BILIRUBIN,TOTAL 1.5 mg/dL (0.2-1.0); TOTAL PROTEIN, SERUM 5.8 g/dL (6.0-8.3)
[2023-05-31] MEDS: BUMETANIDE 1MG/4ML VIAL IVP SCH ×2 (16:05→21:28)
[2023-05-31] MEDS: FAMOTIDINE 20MG TAB PO SCH (21:13)
[2023-05-31] MEDS: GUAIFENESIN SUGAR-FREE 100 MG/5 ML UDCUP PO PRN (23:32)
[2023-06-01] VITALS (8 sets, daily range): BP systolic 88–161; BP diastolic 43–79; PULSE 66–71; RESP 18–22; O2SAT 98–99
[2023-06-01] MEDS: BUMETANIDE 1MG/4ML VIAL IVP SCH ×4 (03:42→21:22)
[2023-06-01 04:52] LABS: ALBUMIN 2.6 g/dL (3.5-5.0); BILIRUBIN,TOTAL 1.3 mg/dL (0.2-1.0); CREATININE 1.5 mg/dL (0.5-1.5); MAGNESIUM 2.4 mg/dL (1.80-2.40); POTASSIUM 4.3 mmol/L (3.5-5.1)
[2023-06-01] MEDS: SUCRALFATE 1 GM TABLET PO SCH ×3 (06:44→21:22)
[2023-06-01] MEDS: LEVOTHYROXINE 75 MCG TABLET PO SCH (06:44)
[2023-06-01] MEDS: LACTULOSE 20 GM/30 ML UDCUP PO SCH ×3 (08:22→21:22)
[2023-06-01] MEDS: POLYETHYLENE GLYCOL 3350 17 GM POWD.PACK PO SCH (08:22)
[2023-06-01] MEDS: FERROUS SULFATE 325 MG TABLET.DR PO SCH (08:22)
[2023-06-01] MEDS: PANTOPRAZOLE 40 MG TAB DR PO SCH ×2 (08:23→21:20)
[2023-06-01] MEDS: APIXABAN 2.5 MG TABLET PO SCH ×2 (08:23→21:21)
[2023-06-01] MEDS: FISH OIL 1000 MG/CAP PO SCH ×3 (08:23→21:20)
[2023-06-01] MEDS: SENNOSIDES 8.6 MG TABLET PO SCH ×2 (08:23→21:20)
[2023-06-01] MEDS: KCL 20 MEQ ERTAB PO SCH (08:23)
[2023-06-01] MEDS: PREGABALIN 25 MG CAP PO SCH ×2 (08:24→21:20)
[2023-06-01] MEDS: URSODIOL 300 MG CAPSULE PO SCH ×3 (08:24→21:21)
[2023-06-01] MEDS: MIDODRINE HCL 5 MG TABLET PO SCH ×3 (08:24→21:21)
[2023-06-01] MEDS: MEROPENEM 500 MG in 0.9%NACL 100ML 100 ML IV SCH ×2 (08:31→16:32)
[2023-06-01] MEDS: ALBUMIN (HUMAN) 25% 50 ML IV SCH ×2 (08:31→16:10)
[2023-06-01] MEDS: DOCUSATE SODIUM 100 MG CAP PO SCH ×2 (08:31→21:20)
[2023-06-01] MEDS: FEBUXOSTAT 40 MG PO SCH (08:54)
[2023-06-01] MEDS: GUAIFENESIN SUGAR-FREE 100 MG/5 ML UDCUP PO PRN (16:08)
[2023-06-01] MEDS: FAMOTIDINE 20MG TAB PO SCH (21:20)
[2023-06-02] VITALS (8 sets, daily range): BP systolic 83–104; BP diastolic 44–59; PULSE 58–69; RESP 18–22; O2SAT 99
[2023-06-02] MEDS: MEROPENEM 500 MG in 0.9%NACL 100ML 100 ML IV SCH ×3 (01:47→16:09)
[2023-06-02] MEDS: BUMETANIDE 1MG/4ML VIAL IVP SCH ×4 (05:48→21:00)
[2023-06-02] MEDS: SUCRALFATE 1 GM TABLET PO SCH ×3 (05:49→20:59)
[2023-06-02] MEDS: GUAIFENESIN SUGAR-FREE 100 MG/5 ML UDCUP PO PRN ×2 (05:49→11:57)
[2023-06-02] MEDS: LEVOTHYROXINE 75 MCG TABLET PO SCH (05:49)
[2023-06-02] MEDS: FISH OIL 1000 MG/CAP PO SCH ×3 (08:58→20:58)
[2023-06-02] MEDS: POLYETHYLENE GLYCOL 3350 17 GM POWD.PACK PO SCH (08:58)
[2023-06-02] MEDS: SENNOSIDES 8.6 MG TABLET PO SCH ×2 (08:58→20:59)
[2023-06-02] MEDS: MIDODRINE HCL 5 MG TABLET PO SCH ×3 (08:58→21:00)
[2023-06-02] MEDS: LACTULOSE 20 GM/30 ML UDCUP PO SCH ×3 (08:58→20:58)
[2023-06-02] MEDS: PANTOPRAZOLE 40 MG TAB DR PO SCH ×2 (08:59→20:59)
[2023-06-02] MEDS: FERROUS SULFATE 325 MG TABLET.DR PO SCH (08:59)
[2023-06-02] MEDS: APIXABAN 2.5 MG TABLET PO SCH ×2 (08:59→20:59)
[2023-06-02] MEDS: PREGABALIN 25 MG CAP PO SCH ×2 (08:59→21:00)
[2023-06-02] MEDS: DOCUSATE SODIUM 100 MG CAP PO SCH ×2 (09:01→21:00)
[2023-06-02] MEDS: KCL 20 MEQ ERTAB PO SCH (09:01)
[2023-06-02] MEDS: URSODIOL 300 MG CAPSULE PO SCH ×3 (09:02→21:00)
[2023-06-02] MEDS: FEBUXOSTAT 40 MG PO SCH (09:05)
[2023-06-02 09:09] LABS: CREATININE 1.5 mg/dL (0.5-1.5); POTASSIUM 3.9 mmol/L (3.5-5.1)
[2023-06-02 09:14] LABS: BILIRUBIN,TOTAL 1.7 mg/dL (0.2-1.0); MAGNESIUM 2.4 mg/dL (1.80-2.40); TOTAL PROTEIN, SERUM 6.6 g/dL (6.0-8.3)
[2023-06-02 09:57] LABS: B-TYPE NATRIURETIC PEPTIDE 859 pg/mL (0-100)
[2023-06-02 10:05] LABS: HEMATOCRIT 25.5 % (36-48); MEAN CORPUSCULAR VOLUME 90.4 fL (79-99); NUCLEATED RED BLOOD CELLS 0.3 % (0.0-0.19); PLATELET COUNT (AUTO) 237 K/uL (130-400); RED BLOOD CELL COUNT(AUTO) 2.82 MIL/uL (4.00-5.50); RED CELL DISTRIBUTION WIDTH 22.2 % (11.0-15.5); WHITE BLOOD COUNT (AUTO) 6.4 K/uL (4.8-10.8)
[2023-06-02] MEDS: ALBUMIN (HUMAN) 25% 50 ML IV SCH (15:57)
[2023-06-02] MEDS: METOLAZONE 2.5 MG TABLET PO SCH (16:08)
[2023-06-02] MEDS: FAMOTIDINE 20MG TAB PO SCH (20:59)
[2023-06-03] VITALS (9 sets, daily range): BP systolic 90–106; BP diastolic 46–69; PULSE 66–71; RESP 18–20; O2SAT 99
[2023-06-03] MEDS: MEROPENEM 500 MG in 0.9%NACL 100ML 100 ML IV SCH ×3 (01:02→17:46)
[2023-06-03] MEDS: BUMETANIDE 1MG/4ML VIAL IVP SCH ×4 (03:34→21:40)
[2023-06-03] MEDS: GUAIFENESIN SUGAR-FREE 100 MG/5 ML UDCUP PO PRN ×2 (03:34→10:13)
[2023-06-03] MEDS: SUCRALFATE 1 GM TABLET PO SCH ×3 (06:14→21:40)
[2023-06-03] MEDS: LEVOTHYROXINE 75 MCG TABLET PO SCH (06:26)
[2023-06-03] MEDS: FEBUXOSTAT 40 MG PO SCH (09:00)
[2023-06-03 09:50] LABS: CREATININE 1.5 mg/dL (0.5-1.5); MAGNESIUM 2.4 mg/dL (1.80-2.40)
[2023-06-03] MEDS: SENNOSIDES 8.6 MG TABLET PO SCH ×2 (10:11→21:00)
[2023-06-03] MEDS: FISH OIL 1000 MG/CAP PO SCH ×3 (10:11→21:36)
[2023-06-03] MEDS: METOLAZONE 2.5 MG TABLET PO SCH (10:12)
[2023-06-03] MEDS: KCL 20 MEQ ERTAB PO SCH (10:12)
[2023-06-03] MEDS: DOCUSATE SODIUM 100 MG CAP PO SCH ×2 (10:12→21:00)
[2023-06-03] MEDS: URSODIOL 300 MG CAPSULE PO SCH ×3 (10:12→21:36)
[2023-06-03] MEDS: MIDODRINE HCL 5 MG TABLET PO SCH ×3 (10:13→21:36)
[2023-06-03] MEDS: LACTULOSE 20 GM/30 ML UDCUP PO SCH ×3 (10:13→21:36)
[2023-06-03] MEDS: FERROUS SULFATE 325 MG TABLET.DR PO SCH (10:13)
[2023-06-03] MEDS: POLYETHYLENE GLYCOL 3350 17 GM POWD.PACK PO SCH (10:13)
[2023-06-03] MEDS: PREGABALIN 25 MG CAP PO SCH ×2 (10:13→21:42)
[2023-06-03] MEDS: PANTOPRAZOLE 40 MG TAB DR PO SCH ×2 (10:13→21:37)
[2023-06-03] MEDS: ENOXAPARIN SODIUM 100 MG/1 ML SQ SCH (10:24)
[2023-06-03] MEDS ORDERED: KCL 20 MEQ ERTAB PO ONE (17:00)
[2023-06-03] MEDS ORDERED: ALBUMIN (HUMAN) 25% 50 ML IV SCH (20:00)
[2023-06-03] MEDS: FAMOTIDINE 20MG TAB PO SCH (21:36)
[2023-06-04] MEDS: MEROPENEM 500 MG in 0.9%NACL 100ML 100 ML IV SCH ×4 (00:43→23:52)
[2023-06-04] MEDS: QUETIAPINE FUMARATE 25 MG TAB PO PRN (01:41)
[2023-06-04] MEDS: BUMETANIDE 1MG/4ML VIAL IVP SCH ×4 (04:00→21:09)
[2023-06-04 05:12] VITALS: BP 89/52; PULSE 73; RESP 18
[2023-06-04 05:16] LABS: ALBUMIN 2.9 g/dL (3.5-5.0); BILIRUBIN,TOTAL 1.6 mg/dL (0.2-1.0); CREATININE 1.3 mg/dL (0.5-1.5); MAGNESIUM 2.4 mg/dL (1.80-2.40); TOTAL PROTEIN, SERUM 6.4 g/dL (6.0-8.3)
[2023-06-04 05:29] LABS: POTASSIUM 2.8 mmol/L (3.5-5.1)
[2023-06-04] MEDS: KCL 20 MEQ ERTAB PO PRN (05:47)
[2023-06-04] MEDS: SUCRALFATE 1 GM TABLET PO SCH ×3 (05:47→21:09)
[2023-06-04] MEDS: LEVOTHYROXINE 75 MCG TABLET PO SCH (05:47)
[2023-06-04] MEDS ORDERED: ALPRAZOLAM 0.25 MG TABLET PO SCH (06:08)
[2023-06-04] MEDS ORDERED: ALPRAZOLAM 0.25 MG TABLET ONE (06:22)
[2023-06-04 08:20] VITALS: BP 90/50; PULSE 71; RESP 18; O2SAT 99
[2023-06-04] MEDS: FEBUXOSTAT 40 MG PO SCH (09:00)
[2023-06-04] MEDS: FERROUS SULFATE 325 MG TABLET.DR PO SCH (09:08)
[2023-06-04] MEDS: DOCUSATE SODIUM 100 MG CAP PO SCH ×2 (09:08→21:09)
[2023-06-04] MEDS: LACTULOSE 20 GM/30 ML UDCUP PO SCH ×3 (09:08→21:06)
[2023-06-04] MEDS: FISH OIL 1000 MG/CAP PO SCH ×3 (09:09→21:07)
[2023-06-04] MEDS: KCL 20 MEQ ERTAB PO SCH ×2 (09:11→21:06)
[2023-06-04] MEDS: PANTOPRAZOLE 40 MG TAB DR PO SCH ×2 (09:11→21:08)
[2023-06-04] MEDS: PREGABALIN 25 MG CAP PO SCH ×2 (09:11→21:06)
[2023-06-04] MEDS: POLYETHYLENE GLYCOL 3350 17 GM POWD.PACK PO SCH (09:11)
[2023-06-04] MEDS: URSODIOL 300 MG CAPSULE PO SCH ×3 (09:12→21:07)
[2023-06-04] MEDS: METOLAZONE 2.5 MG TABLET PO SCH (09:12)
[2023-06-04] MEDS: SENNOSIDES 8.6 MG TABLET PO SCH ×2 (09:12→21:08)
[2023-06-04] MEDS: MIDODRINE HCL 5 MG TABLET PO SCH ×3 (10:49→21:08)
[2023-06-04] MEDS: ENOXAPARIN SODIUM 100 MG/1 ML SQ SCH (10:49)
[2023-06-04 12:15] VITALS: BP 87/49; PULSE 73; RESP 20
[2023-06-04] MEDS: HYDROXYZINE 25 MG TABLET PO SCH ×2 (14:12→21:07)
[2023-06-04 17:16] VITALS: BP 90/49; PULSE 72; RESP 20
[2023-06-04 20:00] VITALS: O2SAT 96
[2023-06-04 20:47] VITALS: BP 90/49; PULSE 70; RESP 18
[2023-06-04] MEDS: FAMOTIDINE 20MG TAB PO SCH (21:08)
[2023-06-05] VITALS (8 sets, daily range): BP systolic 79–105; BP diastolic 43–61; PULSE 70–72; RESP 18; O2SAT 95–99
[2023-06-05] MEDS: BUMETANIDE 1MG/4ML VIAL IVP SCH ×4 (04:00→20:32)
[2023-06-05] MEDS: LEVOTHYROXINE 75 MCG TABLET PO SCH (05:29)
[2023-06-05] MEDS: SUCRALFATE 1 GM TABLET PO SCH ×3 (05:29→20:34)
[2023-06-05 08:03] LABS: HEMATOCRIT 26.3 % (36-48); MEAN CORPUSCULAR HGB CONC 30.4 g/dL (32.0-36.0); RED BLOOD CELL COUNT(AUTO) 2.86 MIL/uL (4.00-5.50); RED CELL DISTRIBUTION WIDTH 21.5 % (11.0-15.5); WHITE BLOOD COUNT (AUTO) 6.2 K/uL (4.8-10.8)
[2023-06-05 08:19] LABS: ALBUMIN 2.8 g/dL (3.5-5.0); BILIRUBIN,TOTAL 1.5 mg/dL (0.2-1.0); CREATININE 1.4 mg/dL (0.5-1.5); MAGNESIUM 2.3 mg/dL (1.80-2.40); PHOSPHORUS 4.6 mg/dL (2.5-4.9); TOTAL PROTEIN, SERUM 6.3 g/dL (6.0-8.3)
[2023-06-05] MEDS: LACTULOSE 20 GM/30 ML UDCUP PO SCH ×3 (08:34→20:33)
[2023-06-05] MEDS: FISH OIL 1000 MG/CAP PO SCH ×3 (08:35→20:33)
[2023-06-05] MEDS: HYDROXYZINE 25 MG TABLET PO SCH ×3 (08:35→20:33)
[2023-06-05] MEDS: FERROUS SULFATE 325 MG TABLET.DR PO SCH (08:35)
[2023-06-05] MEDS: PREGABALIN 25 MG CAP PO SCH ×2 (08:36→20:35)
[2023-06-05] MEDS: DOCUSATE SODIUM 100 MG CAP PO SCH ×2 (08:37→20:33)
[2023-06-05] MEDS: URSODIOL 300 MG CAPSULE PO SCH ×3 (08:37→20:34)
[2023-06-05] MEDS: KCL 20 MEQ ERTAB PO SCH ×4 (08:37→20:34)
[2023-06-05] MEDS: MIDODRINE HCL 5 MG TABLET PO SCH ×3 (08:38→20:35)
[2023-06-05] MEDS: SENNOSIDES 8.6 MG TABLET PO SCH ×2 (08:38→20:33)
[2023-06-05] MEDS: POLYETHYLENE GLYCOL 3350 17 GM POWD.PACK PO SCH (08:38)
[2023-06-05] MEDS: PANTOPRAZOLE 40 MG TAB DR PO SCH ×2 (08:38→20:35)
[2023-06-05] MEDS: MEROPENEM 500 MG in 0.9%NACL 100ML 100 ML IV SCH ×3 (08:39→23:30)
[2023-06-05] MEDS: METOLAZONE 2.5 MG TABLET PO SCH (08:42)
[2023-06-05] MEDS: ENOXAPARIN SODIUM 100 MG/1 ML SQ SCH (08:43)
[2023-06-05] MEDS: FEBUXOSTAT 40 MG PO SCH (09:00)
[2023-06-05] MEDS: POTASSIUM CHLORIDE 10% ELIXIR 20 MEQ/15 ML UDCUP PO PRN ×4 (09:14→16:39)
[2023-06-05] MEDS: FAMOTIDINE 20MG TAB PO SCH (20:34)
[2023-06-06] VITALS (9 sets, daily range): BP systolic 86–100; BP diastolic 40–56; PULSE 67–75; RESP 18; O2SAT 95
[2023-06-06] MEDS: BUMETANIDE 1MG/4ML VIAL IVP SCH ×2 (04:00→09:56)
[2023-06-06] MEDS: LEVOTHYROXINE 75 MCG TABLET PO SCH (05:45)
[2023-06-06] MEDS: SUCRALFATE 1 GM TABLET PO SCH ×3 (05:45→20:30)
[2023-06-06] MEDS: FEBUXOSTAT 40 MG PO SCH (09:00)
[2023-06-06] MEDS: LACTULOSE 20 GM/30 ML UDCUP PO SCH ×3 (09:50→20:30)
[2023-06-06] MEDS: SENNOSIDES 8.6 MG TABLET PO SCH ×2 (09:51→20:29)
[2023-06-06] MEDS: POLYETHYLENE GLYCOL 3350 17 GM POWD.PACK PO SCH (09:51)
[2023-06-06] MEDS: FISH OIL 1000 MG/CAP PO SCH ×3 (09:51→20:30)
[2023-06-06] MEDS: DOCUSATE SODIUM 100 MG CAP PO SCH ×3 (09:52→20:56)
[2023-06-06] MEDS: KCL 20 MEQ ERTAB PO SCH (09:52)
[2023-06-06] MEDS: PANTOPRAZOLE 40 MG TAB DR PO SCH ×2 (09:52→20:32)
[2023-06-06] MEDS: HYDROXYZINE 25 MG TABLET PO SCH ×2 (09:52→14:00)
[2023-06-06] MEDS: FERROUS SULFATE 325 MG TABLET.DR PO SCH (09:53)
[2023-06-06] MEDS: PREGABALIN 25 MG CAP PO SCH ×2 (09:54→20:29)
[2023-06-06] MEDS: URSODIOL 300 MG CAPSULE PO SCH ×3 (09:54→20:30)
[2023-06-06] MEDS: MIDODRINE HCL 5 MG TABLET PO SCH ×3 (09:54→20:30)
[2023-06-06] MEDS: ENOXAPARIN SODIUM 100 MG/1 ML SQ SCH (09:56)
[2023-06-06 10:03] LABS: HEMATOCRIT 27.9 % (36-48); MEAN CORPUSCULAR HEMOGLOBIN 28.1 pg (27.0-33.0); MEAN CORPUSCULAR HGB CONC 30.8 g/dL (32.0-36.0); MEAN CORPUSCULAR VOLUME 91.2 fL (79-99); RED BLOOD CELL COUNT(AUTO) 3.06 MIL/uL (4.00-5.50)
[2023-06-06 10:12] LABS: CREATININE 1.5 mg/dL (0.5-1.5); POTASSIUM 3.8 mmol/L (3.5-5.1)
[2023-06-06 10:16] LABS: ALBUMIN 2.9 g/dL (3.5-5.0); BILIRUBIN,TOTAL 1.6 mg/dL (0.2-1.0); MAGNESIUM 2.4 mg/dL (1.80-2.40); TOTAL PROTEIN, SERUM 6.7 g/dL (6.0-8.3)
[2023-06-06] MEDS: MEROPENEM 500 MG in 0.9%NACL 100ML 100 ML IV SCH ×2 (11:51→15:42)
[2023-06-06] MEDS: FAMOTIDINE 20MG TAB PO SCH (20:30)
[2023-06-06] MEDS: GUAIFENESIN SUGAR-FREE 100 MG/5 ML UDCUP PO PRN (20:54)
[2023-06-06] MEDS ORDERED: BUMETANIDE 1MG/4ML VIAL IVP SCH (21:00)
[2023-06-06] MEDS ORDERED: HYDROXYZINE 25 MG TABLET PO PRN (21:00)
[2023-06-07] VITALS (7 sets, daily range): BP systolic 92–117; BP diastolic 51–63; PULSE 69–86; RESP 16–20; O2SAT 94
[2023-06-07] MEDS: MEROPENEM 500 MG in 0.9%NACL 100ML 100 ML IV SCH ×3 (00:35→16:44)
[2023-06-07 04:30] LABS: HEMATOCRIT 25.1 % (36-48); MEAN CORPUSCULAR HEMOGLOBIN 28.2 pg (27.0-33.0); MEAN CORPUSCULAR HGB CONC 31.1 g/dL (32.0-36.0); MEAN CORPUSCULAR VOLUME 90.6 fL (79-99); NUCLEATED RED BLOOD CELLS 0.4 % (0.0-0.19); RED BLOOD CELL COUNT(AUTO) 2.77 MIL/uL (4.00-5.50); RED CELL DISTRIBUTION WIDTH 21.8 % (11.0-15.5)
[2023-06-07 04:59] LABS: ALBUMIN 2.6 g/dL (3.5-5.0); BILIRUBIN,TOTAL 1.3 mg/dL (0.2-1.0); CREATININE 1.5 mg/dL (0.5-1.5); MAGNESIUM 2.4 mg/dL (1.80-2.40); TOTAL PROTEIN, SERUM 6.3 g/dL (6.0-8.3)
[2023-06-07 05:01] LABS: POTASSIUM 2.7 mmol/L (3.5-5.1)
[2023-06-07] MEDS: SUCRALFATE 1 GM TABLET PO SCH ×3 (05:14→21:14)
[2023-06-07] MEDS: LEVOTHYROXINE 75 MCG TABLET PO SCH (05:15)
[2023-06-07] MEDS: KCL 20 MEQ ERTAB PO PRN ×2 (05:19→05:20)
[2023-06-07] MEDS ORDERED: POTASSIUM CHLORIDE 20 MEQ/100 ML BAG IV SCH (07:30)
[2023-06-07] MEDS ORDERED: KCL 20 MEQ ERTAB PO ONE (07:30)
[2023-06-07] MEDS: POLYETHYLENE GLYCOL 3350 17 GM POWD.PACK PO SCH (08:58)
[2023-06-07] MEDS: DOCUSATE SODIUM 100 MG CAP PO SCH ×3 (08:59→21:14)
[2023-06-07] MEDS: SENNOSIDES 8.6 MG TABLET PO SCH ×2 (08:59→21:14)
[2023-06-07] MEDS: PANTOPRAZOLE 40 MG TAB DR PO SCH ×2 (08:59→21:14)
[2023-06-07] MEDS: PREGABALIN 25 MG CAP PO SCH ×2 (08:59→21:14)
[2023-06-07] MEDS: FISH OIL 1000 MG/CAP PO SCH ×3 (08:59→21:14)
[2023-06-07] MEDS: URSODIOL 300 MG CAPSULE PO SCH ×3 (08:59→21:14)
[2023-06-07] MEDS: MIDODRINE HCL 5 MG TABLET PO SCH ×3 (08:59→21:14)
[2023-06-07] MEDS: FERROUS SULFATE 325 MG TABLET.DR PO SCH (09:00)
[2023-06-07] MEDS: KCL 20 MEQ ERTAB PO SCH (09:00)
[2023-06-07] MEDS: FEBUXOSTAT 40 MG PO SCH (09:00)
[2023-06-07] MEDS: LACTULOSE 20 GM/30 ML UDCUP PO SCH ×3 (09:00→21:13)
[2023-06-07] MEDS ORDERED: SPIRONOLACTONE 25 MG TAB PO SCH (09:30)
[2023-06-07] MEDS: GUAIFENESIN SUGAR-FREE 100 MG/5 ML UDCUP PO PRN ×2 (11:12→16:40)
[2023-06-07] MEDS: ENOXAPARIN SODIUM 100 MG/1 ML SQ SCH (11:13)
[2023-06-07 18:36] LABS: INR 1.33 (0.85-1.15); PROTHROMBIN TIME 15.1 SEC (9.6-11.6)
[2023-06-07] MEDS: FAMOTIDINE 20MG TAB PO SCH (21:14)
[2023-06-08] VITALS (26 sets, daily range): BP systolic 88–110; BP diastolic 49–69; PULSE 61–81; RESP 14–20; O2SAT 100
[2023-06-08] MEDS: MEROPENEM 500 MG in 0.9%NACL 100ML 100 ML IV SCH ×2 (00:47→09:18)
[2023-06-08 04:19] LABS: HEMATOCRIT 28.3 % (36-48); MEAN CORPUSCULAR HGB CONC 30.7 g/dL (32.0-36.0); RED BLOOD CELL COUNT(AUTO) 3.11 MIL/uL (4.00-5.50); RED CELL DISTRIBUTION WIDTH 22.5 % (11.0-15.5); WHITE BLOOD COUNT (AUTO) 4.6 K/uL (4.8-10.8)
[2023-06-08 04:49] LABS: ALBUMIN 2.6 g/dL (3.5-5.0); BILIRUBIN,TOTAL 1.4 mg/dL (0.2-1.0); CREATININE 1.3 mg/dL (0.5-1.5); MAGNESIUM 2.5 mg/dL (1.80-2.40); POTASSIUM 3.9 mmol/L (3.5-5.1); TOTAL PROTEIN, SERUM 6.5 g/dL (6.0-8.3)
[2023-06-08] MEDS: SUCRALFATE 1 GM TABLET PO SCH ×3 (06:00→21:30)
[2023-06-08] MEDS: LEVOTHYROXINE 75 MCG TABLET PO SCH (06:18)
[2023-06-08] MEDS: LACTULOSE 20 GM/30 ML UDCUP PO SCH ×3 (09:00→21:00)
[2023-06-08] MEDS: DOCUSATE SODIUM 100 MG CAP PO SCH ×2 (09:00→21:28)
[2023-06-08] MEDS: FEBUXOSTAT 40 MG PO SCH (09:00)
[2023-06-08] MEDS: SENNOSIDES 8.6 MG TABLET PO SCH ×2 (09:00→21:00)
[2023-06-08] MEDS: POLYETHYLENE GLYCOL 3350 17 GM POWD.PACK PO SCH (09:00)
[2023-06-08] MEDS: MIDODRINE HCL 5 MG TABLET PO SCH ×3 (09:03→21:29)
[2023-06-08] MEDS: FERROUS SULFATE 325 MG TABLET.DR PO SCH (09:04)
[2023-06-08] MEDS: PANTOPRAZOLE 40 MG TAB DR PO SCH ×2 (09:04→21:28)
[2023-06-08] MEDS: PREGABALIN 25 MG CAP PO SCH ×2 (09:04→21:28)
[2023-06-08] MEDS: URSODIOL 300 MG CAPSULE PO SCH ×3 (09:04→21:28)
[2023-06-08] MEDS: FISH OIL 1000 MG/CAP PO SCH ×3 (09:04→21:35)
[2023-06-08] MEDS: KCL 20 MEQ ERTAB PO SCH (09:04)
[2023-06-08] MEDS ORDERED: LIDOCAINE PF 100MG/5ML (2%) SYRINGE 5ML ONE (12:32)
[2023-06-08] MEDS ORDERED: DEXAMETHASONE SOD PHOSPHATE 10MG/ML 1ML VIAL ONE ×2 (12:32→13:45)
[2023-06-08] MEDS ORDERED: SUCCINYLCHOLINE 200MG/10ML SYR ONE (12:32)
[2023-06-08] MEDS ORDERED: NEOSTIGMINE 5MG/5ML SYR IV ONE (12:33)
[2023-06-08] MEDS ORDERED: ROCURONIUM 10MG/1ML SYR 10 MG/ML ML ONE (12:33)
[2023-06-08] MEDS ORDERED: FENTANYL CITRATE PF 50 MCG/1 ML 2ML VIAL ONE (12:33)
[2023-06-08] MEDS ORDERED: ONDANSETRON 4MG INJ ONE (12:33)
[2023-06-08] MEDS ORDERED: GLYCOPYRROLATE 1 MG/5 ML SYRINGE ONE (12:33)
[2023-06-08] MEDS ORDERED: MIDAZOLAM HCL 1 MG/ML 2ML VIAL ONE (12:33)
[2023-06-08] MEDS ORDERED: PROPOFOL 10 MG/ML 20ML VIAL IV ONE (12:33)
[2023-06-08] MEDS ORDERED: BUPIVACAINE/PF 0.25% 10ML VIAL IJ ONE ×2 (12:43→12:45)
[2023-06-08] MEDS ORDERED: KETAMINE 50MG/ML SYRINGE 50 MG/ML DISP.SYRIN ONE (12:44)
[2023-06-08] MEDS ORDERED: LIDOCAINE HCL 1% MDV 50ML VIAL ONE (12:44)
[2023-06-08] MEDS ORDERED: SUGAMMADEX SODIUM 200 MG/2 ML VIAL IV ONE (12:50)
[2023-06-08] MEDS ORDERED: NOREPINEPHRINE BITARTRATE 1 MG/1 ML ML IV ONE (12:58)
[2023-06-08] MEDS ORDERED: VANCOMYCIN 1G/250ML KIT 500 ML IV ONE (13:18)
[2023-06-08] MEDS ORDERED: ROCURONIUM BROMIDE 10MG/1ML 5ML VL ONE (13:38)
[2023-06-08] MEDS ORDERED: IOHEXOL-350 50ML VIAL IV ONE (14:35)
[2023-06-08] MEDS ORDERED: BACITRACIN 1 EACH PACKET TP ONE (15:56)
[2023-06-08] MEDS: FAMOTIDINE 20MG TAB PO SCH (21:28)
[2023-06-08] MEDS: BUMETANIDE 1MG/4ML VIAL IVP SCH (21:34)
[2023-06-08] MEDS: QUETIAPINE FUMARATE 25 MG TAB PO PRN (22:51)
[2023-06-09] VITALS (8 sets, daily range): BP systolic 89–102; BP diastolic 49–56; PULSE 62–70; RESP 18–20; O2SAT 94–96
[2023-06-09] MEDS ORDERED: ALPRAZOLAM 0.25 MG TABLET ONE (00:28)
[2023-06-09 04:02] LABS: HEMATOCRIT 27.3 % (36-48); MEAN CORPUSCULAR HEMOGLOBIN 28.6 pg (27.0-33.0); MEAN CORPUSCULAR HGB CONC 30.4 g/dL (32.0-36.0); MEAN CORPUSCULAR VOLUME 94.1 fL (79-99); PLATELET COUNT (AUTO) 173 K/uL (130-400); RED CELL DISTRIBUTION WIDTH 22.7 % (11.0-15.5); WHITE BLOOD COUNT (AUTO) 2.8 K/uL (4.8-10.8)
[2023-06-09 04:14] LABS: ALBUMIN 2.7 g/dL (3.5-5.0); BILIRUBIN,TOTAL 1.6 mg/dL (0.2-1.0); CREATININE 1.4 mg/dL (0.5-1.5); MAGNESIUM 2.4 mg/dL (1.80-2.40); POTASSIUM 4.4 mmol/L (3.5-5.1); TOTAL PROTEIN, SERUM 6.4 g/dL (6.0-8.3)
[2023-06-09 04:48] LABS: LYMPHOCYTES % (MANUAL) 25 % (22-44); SEGMENTED NEUTROPHILS % 75 % (40-70); TOTAL CELLS COUNTED 100
[2023-06-09 04:49] LABS: MAN.DIFF COMMENT-IMPRESSION MANUAL DIFFERENTIAL; PLATELET MORPHOLOGY COMMENT ADEQUATE; WBC MORPHOLOGY NORMAL
[2023-06-09] MEDS: FEBUXOSTAT 40 MG PO SCH (09:00)
[2023-06-09] MEDS: POLYETHYLENE GLYCOL 3350 17 GM POWD.PACK PO SCH (09:37)
[2023-06-09] MEDS: MIDODRINE HCL 5 MG TABLET PO SCH ×3 (09:37→20:02)
[2023-06-09] MEDS: LACTULOSE 20 GM/30 ML UDCUP PO SCH ×3 (09:37→20:03)
[2023-06-09] MEDS: BUMETANIDE 1MG/4ML VIAL IVP SCH (09:39)
[2023-06-09] MEDS: FISH OIL 1000 MG/CAP PO SCH ×3 (09:49→20:02)
[2023-06-09] MEDS: SENNOSIDES 8.6 MG TABLET PO SCH ×2 (09:49→20:03)
[2023-06-09] MEDS: FERROUS SULFATE 325 MG TABLET.DR PO SCH (09:49)
[2023-06-09] MEDS: KCL 20 MEQ ERTAB PO SCH (09:50)
[2023-06-09] MEDS: PANTOPRAZOLE 40 MG TAB DR PO SCH ×2 (09:50→20:02)
[2023-06-09] MEDS: PREGABALIN 25 MG CAP PO SCH ×2 (09:51→20:02)
[2023-06-09] MEDS: DOCUSATE SODIUM 100 MG CAP PO SCH ×2 (09:51→20:02)
[2023-06-09] MEDS: URSODIOL 300 MG CAPSULE PO SCH ×3 (09:51→20:02)
[2023-06-09] MEDS: SUCRALFATE 1 GM TABLET PO SCH ×3 (09:51→20:55)
[2023-06-09] MEDS: LEVOTHYROXINE 75 MCG TABLET PO SCH (09:51)
[2023-06-09] MEDS: FAMOTIDINE 20MG TAB PO SCH (20:02)
[2023-06-09] MEDS: APIXABAN 2.5 MG TABLET PO SCH (20:53)
[2023-06-09] MEDS: QUETIAPINE FUMARATE 25 MG TAB PO PRN (20:53)
[2023-06-09] MEDS ORDERED: BUMETANIDE 1 MG TAB PO SCH (21:00)
[2023-06-10] VITALS (8 sets, daily range): BP systolic 95–110; BP diastolic 47–69; PULSE 61–69; RESP 16–22; O2SAT 94
[2023-06-10 04:40] LABS: HEMATOCRIT 27.5 % (36-48); MEAN CORPUSCULAR HEMOGLOBIN 28.3 pg (27.0-33.0); MEAN CORPUSCULAR HGB CONC 30.9 g/dL (32.0-36.0); MEAN CORPUSCULAR VOLUME 91.7 fL (79-99); NUCLEATED RED BLOOD CELLS 0.5 % (0.0-0.19); WHITE BLOOD COUNT (AUTO) 5.7 K/uL (4.8-10.8)
[2023-06-10 04:59] LABS: ALBUMIN 2.8 g/dL (3.5-5.0); BILIRUBIN,TOTAL 1.5 mg/dL (0.2-1.0); CREATININE 1.6 mg/dL (0.5-1.5); MAGNESIUM 2.7 mg/dL (1.80-2.40); POTASSIUM 4.6 mmol/L (3.5-5.1); TOTAL PROTEIN, SERUM 6.4 g/dL (6.0-8.3)
[2023-06-10] MEDS: SUCRALFATE 1 GM TABLET PO SCH ×3 (05:59→20:33)
[2023-06-10] MEDS: LEVOTHYROXINE 75 MCG TABLET PO SCH (05:59)
[2023-06-10] MEDS: POLYETHYLENE GLYCOL 3350 17 GM POWD.PACK PO SCH (09:00)
[2023-06-10] MEDS: SENNOSIDES 8.6 MG TABLET PO SCH (09:00)
[2023-06-10] MEDS: DOCUSATE SODIUM 100 MG CAP PO SCH (09:39)
[2023-06-10] MEDS: MIDODRINE HCL 5 MG TABLET PO SCH ×3 (09:39→20:33)
[2023-06-10] MEDS: LACTULOSE 20 GM/30 ML UDCUP PO SCH ×4 (09:39→20:47)
[2023-06-10] MEDS: PANTOPRAZOLE 40 MG TAB DR PO SCH ×2 (09:39→20:36)
[2023-06-10] MEDS: FISH OIL 1000 MG/CAP PO SCH ×3 (09:39→20:32)
[2023-06-10] MEDS: KCL 20 MEQ ERTAB PO SCH (09:40)
[2023-06-10] MEDS: FERROUS SULFATE 325 MG TABLET.DR PO SCH (09:40)
[2023-06-10] MEDS: URSODIOL 300 MG CAPSULE PO SCH ×3 (09:40→20:32)
[2023-06-10] MEDS: PREGABALIN 25 MG CAP PO SCH ×2 (09:40→20:32)
[2023-06-10] MEDS: APIXABAN 2.5 MG TABLET PO SCH ×2 (09:41→20:32)
[2023-06-10] MEDS: BUMETANIDE 1 MG TAB PO SCH ×2 (09:41→16:00)
[2023-06-10] MEDS: FEBUXOSTAT 40 MG PO SCH (09:52)
[2023-06-10] MEDS: METOLAZONE 2.5 MG TABLET PO SCH (09:56)
[2023-06-10] MEDS: FAMOTIDINE 20MG TAB PO SCH (20:32)
[2023-06-10] MEDS: QUETIAPINE FUMARATE 25 MG TAB PO PRN (22:20)
[2023-06-11] VITALS (9 sets, daily range): BP systolic 90–116; BP diastolic 50–65; PULSE 60–88; RESP 16–22; O2SAT 94
[2023-06-11 04:47] LABS: HEMATOCRIT 26.9 % (36-48); MEAN CORPUSCULAR HEMOGLOBIN 28.1 pg (27.0-33.0); MEAN CORPUSCULAR HGB CONC 31.6 g/dL (32.0-36.0); MEAN CORPUSCULAR VOLUME 89.1 fL (79-99); RED BLOOD CELL COUNT(AUTO) 3.02 MIL/uL (4.00-5.50); RED CELL DISTRIBUTION WIDTH 22.6 % (11.0-15.5); WHITE BLOOD COUNT (AUTO) 6.3 K/uL (4.8-10.8)
[2023-06-11 05:07] LABS: ALBUMIN 2.8 g/dL (3.5-5.0); BILIRUBIN,TOTAL 1.4 mg/dL (0.2-1.0); CREATININE 1.5 mg/dL (0.5-1.5); MAGNESIUM 2.5 mg/dL (1.80-2.40); POTASSIUM 3.1 mmol/L (3.5-5.1); TOTAL PROTEIN, SERUM 6.3 g/dL (6.0-8.3)
[2023-06-11] MEDS: SUCRALFATE 1 GM TABLET PO SCH ×3 (06:11→21:39)
[2023-06-11] MEDS: KCL 20 MEQ ERTAB PO PRN (06:12)
[2023-06-11] MEDS: LEVOTHYROXINE 75 MCG TABLET PO SCH (06:42)
[2023-06-11] MEDS: LACTULOSE 20 GM/30 ML UDCUP PO SCH ×4 (09:00→21:39)
[2023-06-11] MEDS: PREGABALIN 25 MG CAP PO SCH ×2 (09:06→21:40)
[2023-06-11] MEDS: FERROUS SULFATE 325 MG TABLET.DR PO SCH (09:06)
[2023-06-11] MEDS: URSODIOL 300 MG CAPSULE PO SCH ×3 (09:07→21:39)
[2023-06-11] MEDS: BUMETANIDE 1 MG TAB PO SCH ×2 (09:07→17:42)
[2023-06-11] MEDS: APIXABAN 2.5 MG TABLET PO SCH ×2 (09:07→21:40)
[2023-06-11] MEDS: MIDODRINE HCL 5 MG TABLET PO SCH ×3 (09:07→21:41)
[2023-06-11] MEDS: KCL 20 MEQ ERTAB PO SCH (09:08)
[2023-06-11] MEDS: PANTOPRAZOLE 40 MG TAB DR PO SCH ×2 (09:08→21:40)
[2023-06-11] MEDS: FEBUXOSTAT 40 MG PO SCH (09:11)
[2023-06-11] MEDS: FISH OIL 1000 MG/CAP PO SCH ×3 (09:14→21:40)
[2023-06-11] MEDS ORDERED: KCL 20 MEQ ERTAB PO ONE (10:30)
[2023-06-11] MEDS: GUAIFENESIN SUGAR-FREE 100 MG/5 ML UDCUP PO PRN (21:16)
[2023-06-11] MEDS: FAMOTIDINE 20MG TAB PO SCH (21:40)
[2023-06-12] VITALS (9 sets, daily range): BP systolic 97–116; BP diastolic 44–72; PULSE 60–99; RESP 18–22; O2SAT 95–96
[2023-06-12 04:28] LABS: HEMATOCRIT 27.5 % (36-48); MEAN CORPUSCULAR HEMOGLOBIN 28.1 pg (27.0-33.0); MEAN CORPUSCULAR HGB CONC 31.3 g/dL (32.0-36.0); MEAN CORPUSCULAR VOLUME 89.9 fL (79-99); NUCLEATED RED BLOOD CELLS 0.3 % (0.0-0.19); RED BLOOD CELL COUNT(AUTO) 3.06 MIL/uL (4.00-5.50); RED CELL DISTRIBUTION WIDTH 22.8 % (11.0-15.5); WHITE BLOOD COUNT (AUTO) 6.2 K/uL (4.8-10.8)
[2023-06-12 05:13] LABS: ALBUMIN 2.9 g/dL (3.5-5.0); BILIRUBIN,TOTAL 1.5 mg/dL (0.2-1.0); CREATININE 1.6 mg/dL (0.5-1.5); MAGNESIUM 2.7 mg/dL (1.80-2.40); POTASSIUM 3.2 mmol/L (3.5-5.1); TOTAL PROTEIN, SERUM 6.5 g/dL (6.0-8.3)
[2023-06-12] MEDS: POTASSIUM CHLORIDE 10% ELIXIR 20 MEQ/15 ML UDCUP PO PRN ×2 (05:32→09:01)
[2023-06-12] MEDS: LEVOTHYROXINE 75 MCG TABLET PO SCH (05:33)
[2023-06-12] MEDS: SUCRALFATE 1 GM TABLET PO SCH ×3 (05:33→21:07)
[2023-06-12] MEDS ORDERED: KCL 20 MEQ ERTAB PO ONE (08:30)
[2023-06-12] MEDS: LACTULOSE 20 GM/30 ML UDCUP PO SCH ×3 (09:00→21:00)
[2023-06-12] MEDS: KCL 20 MEQ ERTAB PO SCH (09:00)
[2023-06-12] MEDS: MIDODRINE HCL 5 MG TABLET PO SCH ×3 (09:01→20:33)
[2023-06-12] MEDS: BUMETANIDE 1 MG TAB PO SCH ×2 (09:01→17:26)
[2023-06-12] MEDS: PANTOPRAZOLE 40 MG TAB DR PO SCH ×2 (09:02→20:33)
[2023-06-12] MEDS: APIXABAN 2.5 MG TABLET PO SCH ×2 (09:02→20:32)
[2023-06-12] MEDS: FISH OIL 1000 MG/CAP PO SCH ×3 (09:02→20:33)
[2023-06-12] MEDS: PREGABALIN 25 MG CAP PO SCH ×2 (09:04→20:32)
[2023-06-12] MEDS: URSODIOL 300 MG CAPSULE PO SCH ×3 (09:04→20:33)
[2023-06-12] MEDS: FERROUS SULFATE 325 MG TABLET.DR PO SCH (09:05)
[2023-06-12] MEDS: FEBUXOSTAT 40 MG PO SCH (09:08)
[2023-06-12] MEDS: FAMOTIDINE 20MG TAB PO SCH (20:32)
[2023-06-13] MEDS: SUCRALFATE 1 GM TABLET PO SCH ×2 (06:00→14:46)
[2023-06-13 07:00] VITALS: BP 95/45; PULSE 60; RESP 18
[2023-06-13 08:00] VITALS: O2SAT 96
[2023-06-13] MEDS: BUMETANIDE 1 MG TAB PO SCH ×2 (08:00→17:36)
[2023-06-13] MEDS: PREGABALIN 25 MG CAP PO SCH (09:00)
[2023-06-13] MEDS: APIXABAN 2.5 MG TABLET PO SCH (09:00)
[2023-06-13] MEDS: FEBUXOSTAT 40 MG PO SCH (09:00)
[2023-06-13] MEDS: PANTOPRAZOLE 40 MG TAB DR PO SCH (09:00)
[2023-06-13] MEDS: FISH OIL 1000 MG/CAP PO SCH ×2 (09:00→14:46)
[2023-06-13] MEDS: MIDODRINE HCL 5 MG TABLET PO SCH ×2 (09:00→14:47)
[2023-06-13] MEDS: METOLAZONE 2.5 MG TABLET PO SCH (09:00)
[2023-06-13] MEDS: FERROUS SULFATE 325 MG TABLET.DR PO SCH (09:00)
[2023-06-13] MEDS: URSODIOL 300 MG CAPSULE PO SCH ×2 (09:00→14:46)
[2023-06-13] MEDS: LACTULOSE 20 GM/30 ML UDCUP PO SCH ×2 (09:00→14:47)
[2023-06-13 10:27] LABS: ALBUMIN 2.6 g/dL (3.5-5.0); BILIRUBIN,TOTAL 1.5 mg/dL (0.2-1.0); CREATININE 1.4 mg/dL (0.5-1.5); MAGNESIUM 2.4 mg/dL (1.80-2.40); TOTAL PROTEIN, SERUM 6.1 g/dL (6.0-8.3)
[2023-06-13 11:00] VITALS: BP 95/46; PULSE 60; RESP 20
[2023-06-13 14:06] LABS: POTASSIUM 2.7 mmol/L (3.5-5.1)
[2023-06-13 14:39] LABS: HEMATOCRIT 32.4 % (36-48); MEAN CORPUSCULAR HEMOGLOBIN 28.4 pg (27.0-33.0); MEAN CORPUSCULAR HGB CONC 30.9 g/dL (32.0-36.0); RED BLOOD CELL COUNT(AUTO) 3.52 MIL/uL (4.00-5.50); WHITE BLOOD COUNT (AUTO) 4.7 K/uL (4.8-10.8)
[2023-06-13] MEDS: KCL 20 MEQ ERTAB PO PRN (14:47)
[2023-06-13 16:00] VITALS: BP 106/51; PULSE 61; RESP 20
[2023-06-13] MEDS ORDERED: QUET25TA PO (17:55)
[2023-06-13] MEDS ORDERED: APIX2.5T PO (17:55)
[2023-06-13] MEDS ORDERED: POTA-192 PO (17:55)
[2023-06-13] MEDS ORDERED: PANT40TA PO (17:55)
[2023-06-13] MEDS ORDERED: BUME1TAB6 PO (17:55)
[2023-06-13] MEDS ORDERED: MIDO5TAB4 PO (17:55)
[2023-06-13] MEDS ORDERED: KCL 20 MEQ ERTAB PO SCH (21:00)
== END 2023-06-13 18:58 | disposition home or self-care (01) | DRG 226 ==
LOC: EDH 10:19 → EDHIP 12:58 → 2BH 05-25 03:43 → 2DH 05-31 16:16
PROVIDERS: ADMIT Hospitalist; ATTEND Hospitalist
PROC: B24BZZZ Ultrasonography of Heart with Aorta (ICD-10-PCS; principal; 2023-06-08)
PROC: 0JH609Z Insertion of Cardiac Resynchronization Defibrillator Pulse Generator into Chest Subcutaneous Tissue and Fascia, Open Approach (ICD-10-PCS; 2023-06-08)
PROC: 02HK3KZ Insertion of Defibrillator Lead into Right Ventricle, Percutaneous Approach (ICD-10-PCS; 2023-06-08)
PROC: 0JPT0PZ Removal of Cardiac Rhythm Related Device from Trunk Subcutaneous Tissue and Fascia, Open Approach (ICD-10-PCS; 2023-06-08)
PROC: 02PA3MZ Removal of Cardiac Lead from Heart, Percutaneous Approach (ICD-10-PCS; 2023-06-08)
DX: I13.0 Hypertensive heart and chronic kidney disease with heart failure and stage 1 through stage 4 chronic kidney disease, or unspecified chronic kidney disease (principal); I21.A1 Myocardial infarction type 2; I50.43 Acute on chronic combined systolic (congestive) and diastolic (congestive) heart failure; J96.01 Acute respiratory failure with hypoxia; N17.9 Acute kidney failure, unspecified; D62 Acute posthemorrhagic anemia; D68.9 Coagulation defect, unspecified; E46 Unspecified protein-calorie malnutrition; E87.1 Hypo-osmolality and hyponatremia; I48.19 Other persistent atrial fibrillation; J98.11 Atelectasis; I42.0 Dilated cardiomyopathy; N18.30 Chronic kidney disease, stage 3 unspecified; I50.82 Biventricular heart failure; Z83.3 Family history of diabetes mellitus; Z82.5 Family history of asthma and other chronic lower respiratory diseases; Z82.49 Family history of ischemic heart disease and other diseases of the circulatory system; Z82.3 Family history of stroke; E03.9 Hypothyroidism, unspecified; E11.22 Type 2 diabetes mellitus with diabetic chronic kidney disease; E78.5 Hyperlipidemia, unspecified; E87.6 Hypokalemia; E88.09 Other disorders of plasma-protein metabolism, not elsewhere classified; F41.9 Anxiety disorder, unspecified; G25.81 Restless legs syndrome; G47.00 Insomnia, unspecified; G47.33 Obstructive sleep apnea (adult) (pediatric); I07.1 Rheumatic tricuspid insufficiency; I25.10 Atherosclerotic heart disease of native coronary artery without angina pectoris; I49.3 Ventricular premature depolarization; I95.89 Other hypotension; K25.9 Gastric ulcer, unspecified as acute or chronic, without hemorrhage or perforation; K59.00 Constipation, unspecified; K74.60 Unspecified cirrhosis of liver; K80.20 Calculus of gallbladder without cholecystitis without obstruction; T45.515A Adverse effect of anticoagulants, initial encounter; M10.9 Gout, unspecified; G47.9 Sleep disorder, unspecified; I45.9 Conduction disorder, unspecified; D63.8 Anemia in other chronic diseases classified elsewhere; Y92.89 Other specified places as the place of occurrence of the external cause; Z51.5 Encounter for palliative care; Z79.01 Long term (current) use of anticoagulants; Z79.899 Other long term (current) drug therapy; Z82.0 Family history of epilepsy and other diseases of the nervous system; Z86.16 Personal history of COVID-19; Z87.11 Personal history of peptic ulcer disease; Z90.710 Acquired absence of both cervix and uterus; Z95.0 Presence of cardiac pacemaker; Z68.37 Body mass index [BMI] 37.0-37.9, adult
CPT/HCPCS: 33225; 33229; 36415; 71045; 71046; 73070; 74176; 80048; 80053; 81003; 82948; 83735; 83880; 84100; 84132; 84145; 84484; 84550; 85025; 85027; 85610; 85730; 87040; 93005; 93308; 93662; 97039; A4344; C1769; C1894; C1900; C2621; G0378; J0330; J1100; J1170; J1650; J1885; J1940; J2001; J2185; J2250; J2405; J2704; J2710; J3010; J3370; J3475; J3480; J3490; P9047; Q9967; A4600; A6214; C1750